=== PATIENT | male | born 1945 | race Caucasian/White ===

== ENCOUNTER 2020-02-28 00:19 | Outpatient (CLI) | payer OTHER, SELFPAY ==
[2020-02-28 17:08] LABS: SARS-CoV-2 RNA PCR Negative
== END 2020-02-28 00:20 | disposition home or self-care (01) ==
PROVIDERS: PCP Physician Assistant; Visit Provider Internal Medicine Gastroenterology
DX: Z01.812 Encounter for preprocedural laboratory examination (principal); Z20.828 Contact with and (suspected) exposure to other viral communicable diseases
CPT/HCPCS: 87635; C9803; U0003

== ENCOUNTER 2020-03-02 00:38 | Day surgery (SDC) | payer OTHER, SELFPAY ==
[2020-02-20 15:42] VITALS: BMI 28.0
[2020-03-02 07:48] VITALS: BP 138/80; PULSE 89; RESP 16; TEMP 36.1; O2SAT 98
--- NOTE | 2020-03-02 07:59 | P.HP_ITS ---
History of Present Illness History of Present Illness Consent: Risks, benefits, and alternatives have been discussed and questions answered. Patient agrees to proceed with procedure. Chief complaint: Hx Colon Polyps Narrative: Luis Aguilera Jr. is a 74 year old white male referred for screening colonoscopy secondary history of colonic polyps. Patient had adenomatous and hyperplastic polyps removed 8 years ago. He has not had a colonoscopy since then. He has no symptoms and no family history of colon polyps or colon cancer. [facility] Past Medical History Medical History (Updated 03/02/20 @ 08:01 by Adam Adames MD) Dyslipidemia Hypertension Surgical History Surgical History (Updated 03/02/20 @ 08:00 by Adam Adames MD) History of lumbar spinal fusion Social History Social History Smoking packs per day: 1 Smoking cigarettes per day: 20.0 Years smoked: 20 Smoking pack-years: 20.00 Smoking status: Former smoker Tobacco type: cigarettes Alcohol intake: current Drinks per week: 6 Substance use: never Substance use type: does not use Living arrangements: with family Spiritual care concerns: No Meds Home Medications and Allergies Home Medications Medication Instructions Recorded Confirmed Type fluticasone propionate 2 spray INTRANASAL DAILY 02/20/20 03/02/20 History levothyroxine 75 mcg PO DAILY 02/20/20 03/02/20 History losartan 50 mg PO DAILY 02/20/20 03/02/20 History rosuvastatin 10 mg PO DAILY 02/20/20 03/02/20 History Allergies Allergy/AdvReac Type Severity Reaction Status Date / Time No Known Drug Allergies Allergy Unknown Unknown Verified 03/02/20 07:40 Vital Signs Vital Signs - 24 hr 03/02/20 07:48 Temperature 36.1 C L Pulse Rate 89 Respiratory Rate 16 Blood Pressure 138/80 Pulse Oximetry 98 Exam Const: Orientation/consciousness: patient oriented x3 Resp: Auscultation: clear to auscultation bilaterally Cardio: Rate: regular rate Rhythm: regular rhythm Heart sounds: no murmurs GI: GI Palp: Yes Soft to palpation, No Tenderness to palpation present (GI), Yes No hepatosplenomegaly present and No Palpable mass present Auscultation: normal bowel sounds Neuro: General: patient oriented x3 and no focal motor deficits Extrem: General: no pedal edema Assessment and Plan Additional Plan screening colonoscopy secondary history of colon polyps
[2020-03-02] MEDS: LACTATED RINGERS 1,000 ML 150 ML IV CONT (08:02)
--- NOTE | 2020-03-02 08:24 | WPDANESEPPF ---
Anes - Initial Pre Proc Eval Procedure: Operation Date: 03/02/20 09:00 Proposed Procedures p Screening Colonoscopy - Adam Adames MD Date/Time: 03/02/20 08:24 Surgeon: Adam Adames MD Pre Op Diagnosis: Hx Colon Polyps Patient Data Age: 74 Gender: M Height: 5 ft 9 in Weight: 87.5 kg Last Vital Signs Temp 97.0 F L 03/02/20 07:48 Pulse 89 03/02/20 07:48 Resp 16 03/02/20 07:48 BP 138/80 03/02/20 07:48 Pulse Ox 98 03/02/20 07:48 Allergies Allergy/AdvReac Type Severity Reaction Status Date / Time No Known Drug Allergies Allergy Unknown Unknown Verified 03/02/20 07:40 Home Medications Medication Instructions Recorded Confirmed Type fluticasone propionate 2 spray INTRANASAL DAILY 02/20/20 03/02/20 History levothyroxine 75 mcg PO DAILY 02/20/20 03/02/20 History losartan 50 mg PO DAILY 02/20/20 03/02/20 History rosuvastatin 10 mg PO DAILY 02/20/20 03/02/20 History Patient hx anesthesia problems: none Family hx anesthesia problems: none [facility] Past Medical History Medical History (Updated 03/02/20 @ 08:24 by Reilly Rico MD) Dyslipidemia H/O prostate cancer Hypertension Hypothyroid Surgical History Surgical History (Updated 03/02/20 @ 08:00 by Adam Adames MD) History of lumbar spinal fusion Social History Social History Smoking packs per day: 1 Smoking cigarettes per day: 20.0 Years smoked: 20 Smoking pack-years: 20.00 Smoking status: Former smoker Tobacco type: cigarettes Alcohol intake: current Drinks per week: 6 Substance use: never Substance use type: does not use Living arrangements: with family Spiritual care concerns: No Anes - Eval Final PreProcedure Day of Procedure 03/02/20 08:24 Patient weight: overweight Heart: regular rate and rhythm Lungs: clear to auscultation Airway: Mallampati scale class II Neurological: alert and oriented Last oral intake: >/= 8 hours ASA classification: III Emergent: no Anesthetic plan: proceed Anesthesia type and monitoring: general GIVS and standard monitoring Informed Consent: The patient's anesthetic plan and its attendant risks and benefits were discussed with the patient/family/POA. Questions were solicited and answers provided to the satisfaction of the patient/family/POA.
--- NOTE | 2020-03-02 09:13 | ECG_ITS ---
Measurements Intervals [place] Rate: 77 P: 58 NM: 146 QRS: 5 QRSD: 97 T: 40 QT: 397 QTc: 451 Interpretive Statements SINUS RHYTHM VENTRICULAR BIGEMINY POSSIBLE LEFT ATRIAL ENLARGEMENT INFERIOR INFARCT, AGE INDETERMINATE ABNORMAL ECG Electronically Signed On 03-02-2020 10:45:12 CDT by Freeman Hidalgo D.O.
--- NOTE | 2020-03-02 09:13 | SUR.OPER ---
0901: PT INTO ENDOSCOPY ROOM 1, CASE DELAYED PER ANESTHESIA, PT'S SPOUSE ELSIE LATRICIA
--- NOTE | 2020-03-02 10:04 | SUR.OPER ---
0957: PT BACK INTO ENDOSCOPY 1, CLEARED FOR PROCEDURE, AT BEDSIDE WITH NO CONCERNS
[2020-03-02] MEDS: SIMETHICONE ORAL SUSPENSION 20 MG/0.3 ML 30 ML BOTTLE 0.6 ML IRRIGATION (10:08)
[2020-03-02 10:21] VITALS: BP 103/48; PULSE 77; RESP 17; O2SAT 95
[2020-03-02 10:31] VITALS: BP 105/49; PULSE 82; RESP 21; O2SAT 98
--- NOTE | 2020-03-02 10:33 | SUR.PHASEII ---
1033 -MT JOHNSON IN WITH PATIENT DOING EKG
--- NOTE | 2020-03-02 10:35 | PM.CNCAR ---
Assessment and Plan Assessment and plan (1) Ventricular bigeminy seen on laboratory monitor: Code(s): R00.8 - Other abnormalities of heart beat Status: Acute Assessment and Plan: likely benign finding. Will check a TSH, T4 level, basic metabolic panel and magnesium level for electrolyte stability. EKG today. 2D echocardiogram with Doppler will be ordered and performed as an outpatient. Will follow up in the office. Patient may proceed to have his elective colonoscopy (2) Hypertension: Code(s): I10 - Essential (primary) hypertension Status: Acute Assessment and Plan: on losartan (3) Dyslipidemia: Code(s): E78.5 - Hyperlipidemia, unspecified Status: Acute Assessment and Plan: on statin (4) Hypothyroid: Code(s): E03.9 - Hypothyroidism, unspecified Status: Acute Assessment and Plan: on replacement History of Present Illness History of Present Illness Consult date/time: 03/02/20 10:35 Requesting physician: Reilly Rico MD Consult reason: Other ( ventricular bigeminy) Reason For Visit: Hx Colon Polyps Narrative: date of service 03/02/2020 Reason for consultation: Ventricular bigeminy history: Patient is a 74-year-old male who is here today to have a colonoscopy performed. Is for routine screening. While on monitor, it was noted that he was in ventricular bigeminy. Consultation was therefore requested. Patient is completely asymptomatic and has no chest pain, shortness breath, syncope, presyncope, paroxysmal nocturnal dyspnea, orthopnea, edema palpitations. 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 He has had a longstanding history of bradycardia. Has never been told he has had ventricular bigeminy. He does get a little dizzy if he stands up too fast from a sitting or lying position Review of Systems Review of Systems: All systems reviewed & are unremarkable except as noted in HPI and below Constitutional: Constitutional: Denies weakness Eyes: Eyes: Denies blurry vision ENT: Denies Normal hearing present Cardiovascular: Cardiovascular: Denies chest pain Respiratory: Respiratory: Denies dyspnea Gastrointestinal: Gastrointestinal: Denies abdominal pain Genitourinary: Genitourinary: Denies dysuria Musculoskeletal: Musculoskeletal: Denies neck pain Integumentary/Breasts: Skin/Breast: Denies dry skin Neurologic: Denies headache(s) Psychiatric: Psychiatric: Denies anxiety Endocrine: Endocrine: Denies excessive sweating Hematologic/Lymphatic: Hematologic/Lymphatic: Denies easy bleeding Allergic/Immunologic: Allergic/Immunologic: Denies GI upset with certain foods PMFSH Past Medical History Medical History Dyslipidemia H/O prostate cancer Hypertension Hypothyroid Surgical History Surgical History History of lumbar spinal fusion Family History Family History (Updated 03/02/20 @ 10:38 by Ravinder Hernandez MD) Father CHF (congestive heart failure) Social History Social History Smoking packs per day: 1 Smoking cigarettes per day: 20.0 Years smoked: 20 Smoking pack-years: 20.00 Smoking status: Former smoker Tobacco type: cigarettes Alcohol intake: current Drinks per week: 6 Substance use: never Substance use type: does not use Living arrangements: with family Spiritual care concerns: No Meds Home Medications and Allergies Home Medications Medication Instructions Recorded Confirmed Type fluticasone propionate 2 spray INTRANASAL DAILY 02/20/20 03/02/20 History levothyroxine 75 mcg PO DAILY 02/20/20 03/02/20 History losartan 50 mg PO DAILY 02/20/20 03/02/20 History rosuvastatin 10 mg PO DAILY 02/20/20 03/02/20 History Allergies Allergy/AdvReac Type Severity Reaction Status Date
[2020-03-02 10:41] VITALS: BP 131/61; PULSE 74; RESP 18; O2SAT 99
== END 2020-03-02 11:24 | disposition home or self-care (01) ==
PROVIDERS: PCP Physician Assistant; Visit Provider Internal Medicine Gastroenterology
PROC: 0DJD8ZZ Inspection of Lower Intestinal Tract, Via Natural or Artificial Opening Endoscopic (ICD-10-PCS; CPT 45378; principal; 2020-03-02 09:00)
DX: Z12.11 Encounter for screening for malignant neoplasm of colon (principal); D12.8 Benign neoplasm of rectum; K57.30 Diverticulosis of large intestine without perforation or abscess without bleeding; K64.8 Other hemorrhoids; R00.8 Other abnormalities of heart beat; E78.5 Hyperlipidemia, unspecified; I10 Essential (primary) hypertension; E03.9 Hypothyroidism, unspecified; Z85.46 Personal history of malignant neoplasm of prostate; Z87.891 Personal history of nicotine dependence
CPT/HCPCS: 45385; 88305; 93005; J2704; J7120

== ENCOUNTER → 2020-09-03 14:00 | Outpatient (CLI) | payer OTHER, SELFPAY ==
--- NOTE | ~2020-09-03 | XR_ITS ---
XR foot LT min 3V DATE: 09/03/2020 14:40 INDICATION: Left foot pain TECHNIQUE: 4 views COMPARISON: None FINDINGS: There is anterior and posterior tibial artery calcification. Plantar calcaneal enthesopathy. No fracture or dislocation, periosteal reaction or bone destruction. No erosive change. There is mild narrowing at the first metatarsophalangeal joint. IMPRESSION: Plantar calcaneal enthesopathy Mild osteoarthritis at the first metatarsophalangeal joint Reviewed, dictated and finalized at location B.
== END ==
PROVIDERS: PCP Physician Assistant; Visit Provider Physician Assistant
DX: M77.32 Calcaneal spur, left foot (principal)
CPT/HCPCS: 73630

== ENCOUNTER → 2021-07-21 12:51 | Outpatient (CLI) | payer OTHER, SELFPAY ==
--- NOTE | ~2021-07-21 | XR_ITS ---
EXAMINATION: XR hip RT min 2V DATE: 07/21/2021 13:09 INDICATION: Right hip pain. TECHNIQUE: 2 views of right hip were obtained. COMPARISON: None. FINDINGS: Bone alignment is normal. No fracture. There is moderate right hip osteoarthritis. Surgical clips overlie the pelvis. IMPRESSION: 1. Moderate right hip osteoarthritis. Reviewed, dictated and finalized at location E. E SPECIALIST
== END ==
PROVIDERS: Visit Provider Physician Assistant
DX: M25.551 Pain in right hip (principal); M17.11 Unilateral primary osteoarthritis, right knee
CPT/HCPCS: 73502

== ENCOUNTER 2024-05-23 14:17 | Emergency (ER) | payer OTHER, SELFPAY ==
[2024-05-23 14:19] VITALS: BP 139/94; PULSE 60; RESP 16; TEMP 36.2; O2SAT 100
--- NOTE | 2024-05-23 15:44 | ED_ITS ---
HPI - Wound/Laceration General Chief Complaint: Wound/Laceration Stated Complaint: tongue lac Time Seen by Provider: 05/23/24 15:30 Source: patient Mode of arrival: ambulatory Limitations: no limitations History of Present Illness HPI narrative: This is a 78-year-old male who presents to the ED for chief complaint of dental/oral laceration during dental procedure today. He takes Eliquis regularly and had trouble stopping the bleeding after the procedure. They were prepping the right upper molar for crown when this happened today. Reports laceration to the gum and tongue. Denies any further injury. Denies lightheadedness, syncope, nausea, vomiting. Related Data Home Medications ?Medication ?Instructions ?Recorded ?Confirmed ?Last Taken ?Type rosuvastatin 10 mg tablet 10 mg PO DAILY 02/20/20 11/20/23 03/01/20 09:00 History apixaban 5 mg tablet (Eliquis) 5 mg PO BID 03/31/23 11/20/23 Unknown History lorazepam 0.5 mg tablet 0.5 mg PO QHS PRN 03/31/23 11/20/23 Unknown History metoprolol succinate 50 mg 50 mg PO DAILY 03/31/23 11/20/23 Unknown History tablet,extended release 24 hr Allergies Allergy/AdvReac Type Severity Reaction Status Date / Time No Known Drug Allergies Allergy Unknown Unknown Verified 11/20/23 11:56 Review of Systems Review of Systems: All systems as dictated in HPI [facility] Past Medical History Medical History (Updated 05/23/24 @ 16:42 by Clyde Azul PA-C) H/O prostate cancer Hypothyroid Hypertension Dyslipidemia Surgical History Surgical History History of lumbar spinal fusion Family History Family History Father CHF (congestive heart failure) Social History Social History Smoking packs per day: 1 Smoking cigarettes per day: 20.0 Years smoked: 20 Smoking pack-years: 20.00 Smoking status: Former smoker Tobacco type: cigarettes Alcohol intake: current Drinks per week: 6 Substance use: never Substance use type: does not use Living arrangements: with family Spiritual care concerns: No Exam Narrative: GENERAL: Well-appearing, well-nourished, and in no acute distress. HEAD: Normocephalic, atraumatic. EYES: PERRLA and EOMI. ENT: Small 1 cm laceration to the right lateral tongue and 1 cm laceration to the right upper gum. Minimal oozing at this point. Almost no bleeding on my exam. Nares clear, no rhinorrhea or epistaxis. Mucous membranes moist. Oropharynx without tonsillar hypertrophy exudate or other lesions. NECK: Supple. No adenopathy or masses. CHEST: No respiratory distress. Clear to auscultation. No wheezes rales or rhonchi HEART: Regular rate and rhythm. No murmur heard. Normal peripheral pulses. ABDOMEN: Soft, nontender, nondistended, normal active bowel sounds. MSK: Normal range of motion. No edema. SKIN: Warm, dry, no rash. NEURO: Alert and oriented x4. No focal deficits. PSYCH: Normal mood and affect. Course Reevaluation(s) Reevaluation #1: Did apply topical TXA for several minutes. Bleeding has stopped at this point. Patient feels good and ready to go home Date: 05/23/24 Time: 16:41 Vital Signs Vital signs: Vital Signs Temperature 97.1 F L 05/23/24 14:19 Pulse Rate 60 05/23/24 14:19 Respiratory Rate 16 05/23/24 14:19 Blood Pressure 139/94 H 05/23/24 14:19 Pulse Oximetry 100 05/23/24 14:19 Temperature 97.9 F 05/23/24 16:46 Pulse Rate 82 05/23/24 16:46 Respiratory Rate 16 05/23/24 16:46 Blood Pressure 132/80 05/23/24 16:46 Pulse Oximetry 100 05/23/24 16:46 MDM - Wound/Laceration MDM Narrative Medical decision making narrative: This is a 78-year-old male who presents to the ED for chief complaint of oral lacerations during at dental procedures today. He is on Eliquis and had quite a bit of trouble getting the bleeding stopped. Vitals are normal. Exam does show mildly oozing bleeding from a right gum and right tongue laceration. It would appear that the bleeding is greatly improved since initial injury. I did have the patient use some TXA soaked gauze over the area and he continues to be asymptomatic on re-evaluation Patient will be discharged in stable condition. Supportive measures discussed and return precautions given. Patient is understanding and agreeable with plan for discharge with PCP follow-up. Discharge Plan Discharge Clinical Impression: Laceration Patient Disposition: Home, Self-Care Condition: Stable Instructions: Antibiotic Form, Laceration (ED) Additional Instructions: Your exam today showed 1 cm lacerations to the right upper gum, right lateral tongue. Questionable small ml to the right cheek. Please stick to softer foods tonight and avoid anything hard or crunchy. If you have any new or worsening symptoms please return to the ER for further evaluation. Patient Language: Barbadian Prescriptions: No Action lorazepam 0.5 mg tablet 0.5 mg PO QHS PRN metoprolol succinate 50 mg tablet extended release 24 hr 50 mg PO DAILY Eliquis 5 mg tablet 5 mg PO BID rosuvastatin 10 mg tablet 10 mg PO DAILY sildenafil 100 mg tablet 100 mg PO DAILY PRN (Reason: sexual activity) Qty: 10 3RF Rx Instructions: administer 30 minutes to 4 hours before activity meclizine 25 mg tablet 25 mg PO BID PRN (Reason: dizziness) Qty: 30 0RF baclofen 10 mg tablet 10 mg PO DAILY PRN (Reason: muscle spasm) Qty: 20 0RF levothyroxine 75 mcg tablet 75 mcg PO DAILY Qty: 90 1RF losartan 50 mg tablet 50 mg PO DAILY Qty: 90 1RF duloxetine 30 mg capsule,delayed release(DR/EC) 30 mg PO DAILY Qty: 30 4RF Follow-up/Referrals: Renata Monson MD [Primary Care Provider] - Time of Disposition: 16:42
[2024-05-23 16:46] VITALS: BP 132/80; PULSE 82; RESP 16; TEMP 36.6; O2SAT 100
== END 2024-05-23 16:48 | disposition home or self-care (01) ==
PROVIDERS: Emergency Provider Physician Assistant; PCP Family Medicine
DX: S01.512A Laceration without foreign body of oral cavity, initial encounter (principal); I10 Essential (primary) hypertension; E03.9 Hypothyroidism, unspecified; E78.5 Hyperlipidemia, unspecified; Z87.891 Personal history of nicotine dependence; Z85.46 Personal history of malignant neoplasm of prostate; Z79.01 Long term (current) use of anticoagulants; Z79.899 Other long term (current) drug therapy; Z98.1 Arthrodesis status; W26.9XXA Contact with unspecified sharp object(s), initial encounter
CPT/HCPCS: 96374; 99284

== ENCOUNTER 2024-06-03 10:29 | Outpatient (CLI) | payer OTHER, SELFPAY ==
--- NOTE | ~2024-06-03 | XR_ITS ---
XR knee RT 3V Ordering provider: Sabra Soto PA-C History: . M25.561 - Pain in right knee . Comparison: None. FINDINGS: BONES: No acute fracture or dislocation. JOINT SPACES: Normal. SOFT TISSUES: Vascular atherosclerotic changes. IMPRESSION: No acute osseous abnormality right knee. Reviewed, dictated and finalized at location A. NESS ANALYTICS MANAGER
== END 2024-06-03 10:30 | disposition home or self-care (01) ==
PROVIDERS: PCP Family Medicine; Visit Provider Student in an Organized Health Care Education/Training Program
DX: M25.561 Pain in right knee (principal)
CPT/HCPCS: 73562

== ENCOUNTER 2024-06-10 14:15 | Outpatient (RCR) | payer OTHER, SELFPAY ==
--- NOTE | 2024-06-10 15:17 | OPREHPOC ---
Outpatient Therapy Plan of Care This is a Multidisciplinary Plan of Care that may contain components documented by all disciplines (PT, OT, and ST.) PT Problem 1 PT Problem #1 Knowledge Deficit PT Goal 1 Goal / Goal Update *indep with HEP Target Visit 4 PT Problem 2 PT Problem #2 Pain PT Goal 1 Goal / Goal Update * decrease pain to 5/10 at worst Target Visit 4 PT Problem 3 PT Problem #3 Impaired Flexibility PT Goal 1 Goal / Goal Update * increase flexion of R knee to 120' to improve mobility and transfer skills Target Visit 4 PT Problem 4 PT Problem #4 Impaired Functional Mobility PT Goal 1 Goal / Goal Update *pt able to ambulate with one crutch 300' with good gait pattern Target Visit 4
--- NOTE | 2024-06-10 15:17 | PTOPEVAL1 ---
Assessment and note entered by Chacha Andres, PT Evaluation Information Assessment Status Evaluation ICD-10 Condition Codes (PT) Pain in right knee M25.561,Abnormalities of gait and mobility R26.9,Weakness R53.1 Onset 05-31-24 Subjective Information propping R LE on foot stool, felt like he hyperextended it; then few days later, going up the stairs, knee popped and hurt, made him fall; then started using the crutches due to knee pain; pain is less than it was initially; saw , had xray, negative; went to chiropractor for knee adjustment earlier today; want to get his knee better because he is leaving for [place] on Jun 20, for 2 months. activity: active lifestyle, golf, walks ~ 1 mile for fitness; not been as active as have been in the past; Reported Pain Level Pain Score Self Report Additional Pain Score Comments pain range in the past few days 7-10/10; tooth ache, throb with each heart beat; not really have any swelling in it. increase pain: sit, rest, use crutches decrease pain: heat, ice, ibuprofen report with sleeping pain awakens him 3x/night also have R ankle pain; Assessment PT Clinical Summary Luis has the diagnosis of R knee pain, onset with hyperextension position of knee, then few days later had pop on stairs and fell. Also reports R ankle pain. He started using the crutches due to pain. The pain has decreased since onset, but sleeping is disrupted due to pain. LE functional scale rating of 93% limitation in activity level. Prior to this, he was active and plans to leave Jun 20 for [place]. History includes lumbar fusion and prostate cancer. With the evaluation: Pain in R knee with both flexion and extension motions, and R ankle pain with DF, inversion and eversion motions; R knee flexion range is active 110'; he is walking with crutches and cannot tolerate full weight bearing on R LE. Skilled PT services are indicated for modalities to decrease pain, therapeutic exercises to increase strength and ROM of R knee and ankle, with education for HEP. With discussion of the plan of care and treatment plan, pt reported he would not be making any more appointments, wanted more treatment on his knee today. Will keep his chart open, in case he wants additional treatment. Plan of Care Interventions Electrical Stimulation,Hot Pack/Cold Pack,Manual Therapy,Neuro Re-education,Patient/Caregiver Education,Therapeutic Activities,Therapeutic Exercise,Ultrasound,Other Other Interventions taping PT Services Indicated Yes Treatment Frequency and 2x/wk for 4 visits Duration These treatments will address the objective and functional deficits as defined above. The patient will be advanced safely and appropriately in order for the patient to progress towards his/her prior level of function. Additional exercises will be introduced and as well as a comprehensive home exercise program upon discharge, if needed, ?to ensure carryover of functional gains achieved in the clinic. This treatment plan has been reviewed and agreement upon by the patient.
--- NOTE | 2024-07-30 15:33 | PTOPDC ---
Assessment and note entered by Chacha Andres, PT Assessment Status Discharge - Pt Not Present ICD-10 Condition Codes (PT) Pain in right knee M25.561,Abnormalities of gait and mobility R26.9,Weakness R53.1 Onset 05-31-24 Subjective Information pt was not seen this date. Assessment PT Clinical Summary Luis had the PT evaluation on June 10 and has not returned for any further treatment. Discharge PT. The goals were not addressed. Plan of Care PT Services Indicated No
== END 2024-07-31 08:27 | disposition home or self-care (01) ==
LOC: ANHPT 14:15
PROVIDERS: PCP Family Medicine; Visit Provider Student in an Organized Health Care Education/Training Program
DX: M25.561 Pain in right knee (principal)
CPT/HCPCS: 97110; 97161; 97530

== ENCOUNTER 2024-08-21 09:50 | Outpatient (CLI) | payer OTHER, SELFPAY ==
--- NOTE | ~2024-08-21 | XR_ITS ---
Clinical Indication: Dyspnea PA and lateral views of the chest: Comparison: 06/07/2016 Findings: The lungs are clear, without evidence of focal consolidation or pleural effusion. Cardiome diastinal silhouette is within normal limits. Bones and soft tissues are unremarkable. Impression: Normal chest. Reviewed, dictated and finalized at location . Impression: Normal chest.
== END 2024-08-21 09:51 | disposition home or self-care (01) ==
LOC: MICIMG 09:52
PROVIDERS: PCP Family Medicine; Visit Provider Student in an Organized Health Care Education/Training Program
DX: R06.00 Dyspnea, unspecified (principal)
CPT/HCPCS: 71046

== ENCOUNTER 2024-12-20 10:47 | Outpatient (CLI) | payer OTHER, SELFPAY ==
--- NOTE | 2024-12-20 10:55 | ECG_ITS ---
Test Date: 2024-12-20 11:02:24 Measurements Intervals [place] Rate: 55 P: 0 NH: 0 QRS: -4 QRSD: 99 T: 2 QT: 420 QTc: 403 Interpretive Statements ATRIAL FIBRILLATION WITH SLOW VENTRICULAR RESPONSE INFERIOR INFARCT, PROBABLY OLD Electronically Signed On 12-20-2024 11:10:45 CDT by Leonel Rocha D.O
--- OUTSIDE RECORDS SUMMARY | 2024-12-20 10:58 | XMS_ITS | Clinical Summary ---
Author Organization [facility] Address [address] [place] [address] Care Team Providers Care Infectious Disease Physician Name Role Phone Unavailable Primary Care Provider Unavailabl e Social History Tobacco Use Types Packs/Day Years Used Date Smoking Tobacco: Never Assessed Sex and Gender Information Value Date Recorded Sex Assigned at Not on file Legal Sex Male 5:00 PM CDT Gender Identity Not on file Sexual Orientation Not on file Plan of Treatment Health Maintenance Due Date Last Done Comments Hepatitis C 1963 DTaP, Tdap and Td Vaccines ( 1 - Tdap) 1965 Pneumococcal Vaccine: 50+ Ye ars (1 of 1 - PCV) 1996 Zoster Vaccines (1 of 2) 1996 RSV Immunization or 60+ Years (1 - 1-dose 75+ series) 2021 COVID-19 Vaccine ( - 2023-2 5 season) 2024 Meningococcal B Vaccine Aged Out No l onger eligible based on patient's age to complete this topic Meningococcal Vaccine Aged Out No edyta elver eligible based on patient's age to complete this topic RSV Immunizations Under 20 Months Aged Out No longer eligible based on patient's age to complete this topic
--- OUTSIDE RECORDS SUMMARY | 2024-12-20 10:58 | XMS_ITS | Encounter Summary ---
Author Organization [facility] Care Team Providers Care Chief Customer Officer Name Role Phone Danyell Mahoney Primary Care Provider [phone] Sonu Hernandez MD Unavailable [phone] Renata Monson MD Primary Care Provider [phone] Encounter Details Date Type Department Care Team (Latest Contact Info) Description 11/24/2016 Orders Only [facility] ProviderSachi MD [address] [place] [address] [phone] Social History Tobacco Use Types Packs/Day Years Used Date Smoking Tobacco: Never Assessed Sex and Gender Information Value Date Recorded Sex Assigned at Not on file Legal Sex Male 7:10 PM CDT Gender Identity Not on file Sexual Orientation Not on file documented as of this encounter Plan of Treatment Not on file documented as of this encounter Procedures Procedure Name Priority Date/Time Associated Diagnosis Comments COLONOSCOPY - SCAN 11/24/2016 12 :00 AM CDT documented in this encounter Results * COLONOSCOPY - SCAN (11/24/2016 12:00 AM CDT) Narrative 11/24/2016 12:00 AM CDT Ordered by an unspecified provider. Historical Provider Final Res ult documented in this encounter Visit Diagnoses Not on filedocumented in this encounter Care Teams Chief Customer Officer Relationship Specialty Start Date End Date Danyell Mahoney PA [address] [place] [address] PCP - General Internal Medicine 11/09/18 03/26/23 Renata Monson MD [address] [place] [address] PCP - General Family Medicine 03/27/23 Sonu Hernandez MD [address] [place] [address] Consulting Physician Cardiology 02/17/22 documented as of this encounter
--- OUTSIDE RECORDS SUMMARY | 2024-12-20 10:58 | XMS_ITS | Clinical Summary ---
Author Organization [facility] Address [address] [place] [address] Care Team Providers Care Billboard Erector Name Role Phone Rito Alejandra MD Unavailable [phone] Renata Monson MD Primary Care Provider [phone] Source Comments [facility],non-owned Affiliates and Associated Physician Practices is amultiple site organization consisting of ambulatory clinics and hospital sitesin [place], [place], [place] and [place]. This disclosure is being madepursuant to the Care Everywhere program and may not contain all information available regarding this patient. Last updated 18.[facility] Allergies No known active allergies Medications * Be aware that medications may not be up to date on this document. Alwaysverify current medications with the patient. naproxen (NAPROSYN) 500 MG tablet Take 500 mg by mouth 2 times daily. Active ibuprofen (MOTRIN) 800 MG tablet Take 800 mg by mouth every 6 hours as needed. Active meloxicam (MOBIC) 7.5 MG tablet Take 1 Tab by mouth 2 times daily. 60 Tab 5 4 Active metoprolol succinate XL 24hr (Toprol XL) 50 MG tablet Take 1 (one) tablet by mouth once daily Active losartan (Cozaar) 50 MG tablet Take 1 (one) tablet by mouth once daily Active LORazepam (Ativan) 0.5 MG tablet Take 1 (one) tablet by mouth every 8 hours as needed 3 Active levoFLOXacin (Levaquin) 500 MG tablet TAKE 1 TABLET BY MOUTH ONCE DAILY START 1 DAY PRIOR TO PROCEDURE 4 Active DULoxetine (Cymbalta) 30 MG capsule TAKE 1 BY MOUTH ONCE DAILY Active Eliquis 5 MG tablet Take 1 (one) tablet by mouth 2 times daily Active Active Problems Problem Noted Date Diagnosed Date Chronic pain of both knees 07/08/2024 Primary osteoarthritis of right knee 07/08/2024 Essential hypertension 08/16/2013 Overview (03/12/2015): History of prostate cancer 08/16/2013 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 08/16/2013 Overview (09/05/2015): 2015 IMO Updt Social History Tobacco Use Types Packs/Day Years Used Date Smoking Tobacco: Unknown Alcohol Use Standard Drinks/Week Comments Not Asked 0 (1 standard drink = 0.6 oz pur e alcohol) Sex and Gender Information Value Date Recorded Sex Assigned at Not on file Legal Sex Male 5:22 AM TOOL PROGRAMMER Gender Identity Not on file Sexual Orientation Not on file Last Filed Vital Signs Vital Sign Reading Time Taken Comments Blood Pressure - - Pulse - - Temperature - - Respiratory Rate - - Oxygen Saturation - - Inhaled Oxygen Concentration - - Weight 83.9 kg (185 lb) 08/16/2013 10:53 AM TOOL PROGRAMMER Height 177.8 cm (5' 10) 08/16/2013 10:53 AM TOOL PROGRAMMER Body Mass Index 26.54 08/16/2013 10:53 AM TOOL PROGRAMMER Plan of Treatment Health Maintenance Due Date Last Done Comments MEDICARE AWV 12 MONTHS 1945 HEPATITIS C SCREENING 10/29/1964 DTAP/TDAP/TD VACCINES (1 - Tdap) 1965 PNEUMOCOCCAL VACCINE 50+ (1 of 1 - PCV) 1996 ZOSTER VACCINE (1 of 2) 1996 Respiratory Syncytial Virus (RSV) Vaccine Pt: or over 60 yrs (1 - 1-dose 75+ series) 2021 COVID-19 VACCINE (1 - 2023- season) 2024 DEPRESSION SCREENING 06/12/2024 INFLUENZA VACCINE (#1) 2025 0, 03/06/2019, 03/05/2018, Additional history exists HEPATITIS B VACCINE Aged Out No longe r eligible based on patient's age to complete this topic HIB VACCINE Aged Out No longer eligi ble based on patient's age to complete this topic HPV VACCINE Aged Out No longer eligi ble based on patient's age to complete this topic MENINGOCOCCAL (Group B) VACCINE SHARED DECISION-MAKING Aged Out No longer eligible based on patient's age to complete this topic MENINGOCOCCAL GROUPS A/C/Y/W VACCINE Aged Out No longer eligible based on patient's age to complete this topic Insurance [employer] ADV PPO Care Teams Billboard Erector Relationship Specialty Start Date End Date Renata Monson MD [address] [place] [address] PCP - General Family Medicine 07/08/24 [place] [address] [place] [id number] Orthopedic Surgery 08/16/13
--- OUTSIDE RECORDS SUMMARY | 2024-12-20 10:58 | XMS_ITS | Encounter Summary ---
Author Organization [facility] Address [address] [place] [address] Care Team Providers Care Payroll Benefits Clerk Name Role Phone Rito Alejandra MD Unavailable Renata Monson MD Primary Care Provider [phone] Encounter Details Date Type Department Care Team (Late st Contact Info) Description 04/14/2020 Lab Requisition [facility] [address] [place] [address] Matt Crawford MD [address] [place] [address] Social History Tobacco Use Types Packs/Day Years Used Date Smoking Tobacco: Unknown Alcohol Use Standard Drinks/Week Comments Not Asked 0 (1 standard drink = 0.6 oz pur e alcohol) Sex and Gender Information Value Date Recorded Sex Assigned at Not on file Legal Sex Male 5:22 AM AIRCRAFT LAYOUT WORKER Gender Identity Not on file Sexual Orientation Not on file documented as of this encounter Plan of Treatment Not on file documented as of this encounter Procedures Procedure Name Priority Date/Time Associated Diagnosis Comments DERMATOPATHOLOGY Routine 04/13/2020 12:0 0 AM AIRCRAFT LAYOUT WORKER documented in this encounter Results * DERMATOPATHOLOGY (04/13/2020 12:00 AM AIRCRAFT LAYOUT WORKER) Case Report Dermatopathology Report Case: [id number] Authorizing Provider: Matt Crawford MD Collected: 04/13/2020 12:00 AM Ordering Location: [facility] Received: 04/14/2020 06:12 AM Pathologist: Kiah Antunez MD Specimens: A) - Skin, right cheek B) - Skin, left buttock 0 11:24 AM [facility] DERMAT[facility]OLOGY [facility]ORAT[facility] Final Diagnosis Specimen A. SKIN, right cheek: INTRADERMAL MELANOCYTIC NEVUS (D22.39) EPIDERMOID CYST (L72.0) Specimen B. 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 Path # [id number]. B: Skin tag. Path # [id number]. 0 11:24 AM [facility] DERMATOPATHOLOGY [facility]ORAT[facility] Gross Description Specimen A: Received is one formalin filled container labeled with the patient's name and designated right cheek. The specimen consists of a shave biopsy measuring [id number]. Jar 0. Specimen B: Received is one formalin filled container labeled with the patient's name and designated left buttock. The specimen consists of a shave biopsy (2 pieces) measuring [id number] & [id number]. Jar 0. 0 11:24 AM [facility]ERMATOPATHOLOGY [facility]OR[facility] Microscopic Description Specimen A. SKIN, right cheek: There are nests of cytologically bland melanocytes within the dermis that mature with depth. Within the dermis, there is a space lined by epithelium that resembles normal epidermis and the infundibular portion of the hair follicle. Specimen B. SKIN, left buttock: There is a gently folded epidermis surrounding a connective tissue core in which fat and collagen are intermingled. 0 11:24 AM [facility]ERMATOPATHOLOGY [facility]ORATORY Disclaimer An external and internal positive and negative controls are appropriate for the histochemical, immunohistochemical and immunofluorescence stain(s) in this case (if any), except where stated explicitly. The performance characteristics of the stain(s) cited in this report were developed and its performance characteristic determined by the Dermatopathology Laboratory at [facility], directed by Dr. Sharon Rosales. These tests need not be, and therefore are not, approved by the [place] Food and Drug Administration. The tests are used for clinical purposes. Billing Codes Specimen Charges Stain Charges 21526 50474 1 1 0 11:24 AM AIRCRAFT LAYOUT WORKER DERMATOPATHOLOGY LABORATORY Embedded Images 0 11:24 AM AIRCRAFT LAYOUT WORKER DERMATOPATHOLOGY LABORATORY Pathology/Cytology TISSUE SPECIMEN FROM SKIN / Unknown 04/13/2020 04/14/2020 6:12 AM AIRCRAFT LAYOUT WORKER Miscellaneous samples (specimen) TISSUE SPECIMEN FROM SKIN / Unknown 04/13/2020 04/14/2020 6:12 AM AIRCRAFT LAYOUT WORKER us Matt Crawford MD LAB - PATHOLOGY/CYTOLOGY ORDER BOONE Final Result DERMATOPATHOLOGY LABORATORY [facility] - Department of Dermatology [facility] Medicine [address] [place] [address], [address] [phone] documented in this encounter Visit Diagnoses Not on filedocumented in this encounter Care Teams Payroll Benefits Clerk Relationship Specialty Start Date End Date Renata Monson MD [address] [place] [address] PCP - General Family Medicine 07/08/24 [place] [address] [place] [id number] Orthopedic Surgery 08/16/13 documented as of this encounter
--- OUTSIDE RECORDS SUMMARY | 2024-12-20 10:58 | XMS_ITS | Clinical Summary ---
Author Organization [facility] [facility] Address [address] [place] [address] Care Team Providers Care Disability Case Manager Name Role Phone Sonu Hernandez MD Unavailable [phone] Renata Monson MD Primary Care Provider [phone] Allergies No known active allergies Medications omega-3 fatty acids-fish oil 360-1,200 mg capsule 1,200 mg daily Activ e multivit-min/FA/ly copen/lutein (CENTRUM SILVER MEN ORAL) Rx: Centrum Silver - Tablet Active gluc lewis/chondro lewis A/vit C/Mn (GLUCOSAMINE-CHOND ROIT-VIT C-MN) [id number] mg tablet Take by mouth daily Active chondroitin sulfate A sodium 400 mg capsule Take 200 mg by mouth Active coenzyme Q10 200 mg capsule Take 1 capsule (200 mg total) by mouth daily Active cetirizine (ZyrTEC) 10 mg tablet as needed Active fluticasone propionate (FLONASE) 50 mcg/actuation nasal sprayIndications:S easonal allergies Administer 2 sprays into each nostril daily 48 mL 2 3 Active rosuvastatin (CRESTOR) 10 mg tabletIndications: Mixed hyperlipidemia TAKE 1 TABLET BY MOUTH EVERY DAY 90 tablet 1 3 Active LORazepam (ATIVAN) 0.5 mg tabletIndications: Anxiety Take 1 tablet (0.5 mg total) by mouth every 8 (eight) hours as needed for anxiety 20 tablet 3 Active meclizine (ANTIVERT) 25 mg tabletIndications: Dizziness TAKE 1 TABLET (25 MG TOTAL) BY MOUTH EVERY 8 (EIGHT) HOURS NEEDED FOR DIZZINESS. 30 tablet 3 Active levothyroxine (SYNTHROID) 75 mcg tabletIndications: Acquired hypothyroidism TAKE 1 TABLET BY MOUTH SPECIAL ASSETS OFFICER BEFORE BREAKFAST 90 tablet [address] (CYMBALTA) 30 mg capsuleIndications :Anxiety Take 1 capsule by mouth once daily 90 capsule 1 3 Active metoprolol XL (TOPROL-XL) 50 mg extended release tablet Take 1 tablet (50 mg total) by mouth daily 90 tablet 3 3 Active baclofen (LIORESAL) 10 mg tablet TAKE 1 TABLET BY MOUTH ONCE DAILY NEEDED FOR MUSCLE SPASM 4 Active cyclobenzaprine (FLEXERIL) 5 mg tablet Take 1 tablet (5 mg total) by mouth 3 (three) times a day as needed for muscle spasms 4 Active losartan (COZAAR) 50 mg tablet Take 1 tablet (50 mg total) by mouth daily 4 Active metroNIDAZOLE (METROGEL) 1 % gel Apply topically daily 4 Active sildenafiL (VIAGRA) 100 mg tablet Take 1 tablet (100 mg total) by mouth as needed 4 Active apixaban (Eliquis) 5 mg tablet Take 1 tablet (5 mg total) by mouth 2 (two) times a day 60 tablet 6 5 Active Active Problems Problem Noted Date Diagnosed Date Cataract 02/01/2023 Assessment & Plan (02/01/2023 9:21 AM CDT): Plans Cataract removal with Dr. Fernandez/Jacinto [place] 02/01/2023 Assessment & Plan (02/01/2023 9:24 AM CDT): Patient has done well with Cymbalta 30 states it helps him not b low up . Continue with 30 mg and lorazepam b.i.d.. If symptoms increase would recommend increasing the Cymbalta to 60 and continuing to try to decrease lorazepam as this is a benzodiazepine with addictive dependency characteristics. BMI 29.0-29.9,adult 01/30/2023 Assessment & Plan (01/30/2023 3:28 PM CDT): Weight/BMI is in healthy range. Continue healthy lifestyle to maintain. Medicare annual wellness visit, subsequent 08/14 Assessment & Plan (08/21/2022 11:27 PM CDT): Encouraged healthy lifestyle, good nutrition and exercise. Encouraged Calcium and Vitamin D and weight bearing exercise for bone health. Reviewed immunizations. Reviewed age appropirate screenings. Medicare Wellness Documentation is completed within the chart Dizziness 02/18/2022 Assessment & Plan (02/18/2022 7:31 AM CDT): Patient has been experiencing dizziness for years. He felt like his dizziness exacerbated when he started the Xarelto. Discussed with him at length that this could be truly related to his AFib that has just now been caught. It probably is not isolated as a side effect to the Xarelto. Reviewed stroke symptoms and the need to be on an anticoagulant to prevent stroke risk based upon his chads Vasc risk score and his new diagnosis of AFib. Strongly encouraged him to consider restarting a anticoagulant which he is willing to do I reached out to Dr. Hernandez's office and was able to talk to his nurse Rosamaria regarding our patient. She is in agreement with the plan of restarting anticoagulant. He she will work on following up with his monitor to determine if enough information is available to continue with treatment plans. Will connect next week to discuss further. I also discussed with patient that I am concerned that he could have had a TIA or a stroke. He has not had any imaging of his brain so recommend getting a stat CT without contrast to rule out any vascular changes. Patient is agreement with the plan and would prefer [facility] or [facility] Paroxysmal atrial fibrillation 02/18/2022 Overview (02/18/2022): Dx: 01/2022 Dr. Hernandez [facility]. Assessment & Plan (08/21/2022 11:27 PM CDT): Persistent AFib. Continue per Dr. Hernandez at [facility] and Dr. Hernandez at [facility] in [place] He is on Eliquis b.i.d. as well as metoprolol for rate control. Assessment & Plan (02/18/2022 7:31 AM CDT): Patient has been experiencing dizziness for years. He felt like his dizziness exacerbated when he started the Xarelto. Discussed with him at length that this could be truly related to his AFib that has just now been caught. It probably is not isolated as a side effect to the Xarelto. Reviewed stroke symptoms and the need to be on an anticoagulant to prevent stroke risk based upon his chads Vasc risk score and his new diagnosis of AFib. Strongly encouraged him to consider restarting a anticoagulant which he is willing to do I reached out to Dr. Hernandez's office and was able to talk to his nurse Rosamaria regarding our patient. She is in agreement with the plan of restarting anticoagulant. He she will work on following up with his monitor to determine if enough information is available to continue with treatment plans. Will connect next week to discuss further. I also discussed with patient that I am concerned that he could have had a TIA or a stroke. He has not had any imaging of his brain so recommend getting a stat CT without contrast to rule out any vascular changes. Patient is agreement with the plan and would prefer [facility] or [facility] Brachial neuritis 12/01/2021 Disorder of bursae of shoulder region 12/01/2021 Low back pain 12/01/2021 Osteoarthritis of both knees 12/01/2021 Abrasion of face 07/18/2021 Assessment & Plan (07/18/2021 1:34 PM TIMBER TRIMMER): Abrasion was cleaned with water and dressed with DEDE and a Band-Aid. These to look for signs or symptoms of infection. And follow-up if he has any further problems. Tinnitus 06/15/2021 Assessment & Plan (06/15/2021 10:01 PM TIMBER TRIMMER): Patient is noting tripping or cricket sounds in his ears. Is distracting and would like further evaluation. Will go ahead make the referral to the truant officer and ENT and await recommendations. Right hip flexor tightness 03/08/2021 Assessment & Plan (03/08/2021 10:13 AM CDT): Discussed with patient that this appears to be right foot hip flexor tightness. We could do an x-ray to rule out bony abnormality but he has not had any type of a fall or injury. If it persists that would be recommended. Discussed NSAIDs which she has been using. Continue with heat or ice, whichever feels best him. Encouraged to consider physical therapy to help work him through this muscular tightness. However he is planning on leaving for floor in the next few days and does not feel like he can get that in before he leaves. Offered physical therapy order for [place] but he is with [facility] and so I do not believe feel build up taking care down there for physical therapy. He can check with his insurance and if it is possible I would be glad to write the order. Provided warning signs of hernia symptoms/incarcerated hernia. If these occur he is to seek immediate care. Fatigue 02/21/2021 Assessment & Plan (02/01/2023 9:22 AM CDT): Probably multifactorial. Check labs and followup to re-evaluate Assessment & Plan (08/21/2022 11:26 PM CDT): Probably multifactorial. Check labs and followup to re-evaluate Assessment & Plan (02/21/2021 9:51 AM CDT): Probably multifactorial. Check labs and followup to re-evaluate Premature atrial contractions 01/14/2021 Annual physical exam 12/06/2020 Assessment & Plan (02/01/2023 9:21 AM CDT): Insert wellness exam Assessment & Plan (12/06/2020 5:10 PM CDT): Encouraged healthy lifestyle, good nutrition and exercise. Encouraged Calcium and Vitamin D and weight bearing exercise for bone health. Reviewed immunizations Reviewed age appropirate screenings. Arthralgia 12/06/2020 Assessment & Plan (12/06/2020 5:10 PM CDT): Continue NSAIDs sparingly Check CMP Frequent PVCs 11/27/2020 Sinus bradycardia 09/15/2020 Assessment & Plan (09/15/2020 9:16 AM CDT): Continue per Cardio -- Patient states he feels great and it always run this Anxiety 06/07/2020 Assessment & Plan (08/21/2022 11:26 PM CDT): Continue to anxiety. Started Cymbalta about 2 weeks ago and thinks it is helping. Will continue with the same dose. Still has lorazepam b.i.d.. Follow-up in 4-6 weeks to reassess Assessment & Plan (02/21/2021 9:50 AM CDT): Pt stopped the cymbalta as feel like is currently managing without medication. Uses lorazepam sparingly prn Assessment & Plan (12/06/2020 5:08 PM CDT): Tried Cymbalta for a few days and didn't like. Will monitor. Assessment & Plan (06/09/2020 12:33 PM TIMBER TRIMMER): Increased anxiety sxs. Patient admits having sxs for a very long time. Discussed medication options--- Reviewed risks, benefit, alternatives, side effects and proper use. Start Cymbalta for the indications of anxiety and pain. One daily. May increase to 60mg if tolerates well. Assessment & Plan (06/07/2020 5:41 PM TIMBER TRIMMER): Continue Cymbalta. If tolerates well, may incresae to 60mg. PVC's (premature ventricular contractions) 05/31 Assessment & Plan (06/07/2020 5:39 PM TIMBER TRIMMER): See HTN Assessment & Plan (05/31/2020 10:55 AM TIMBER TRIMMER): Patient follows with cardio Dr. Schneider. His Metoprolol was increased to 50mg daily and this is when his sxs started. Will back down to 25mg for the next week to see if dizziness improves and start cymbalta. Followup in 1 week and will try to increase back to 50mg. If persists, may need referral back to Dr. Hernandez. He is to call with increased sxs, CP, SOB, syncope or if after hours, go to the ER. LISA on CPAP 05/27/2020 Assessment & Plan (01/03/2024 10:40 AM CDT): Due to continued symptoms, the patient will continue CPAP at 4-20 cm water pressure. Denied need for supplies. DME [facility] Assessment & Plan (12/30/2022 11:13 AM CDT): The patient will continue with CPAP at 4-20 cm water pressure. Denied need for supplies. DME [facility] Assessment & Plan (08/21/2022 11:26 PM CDT): Continue CPAP per Dr. Garcia Assessment & Plan (12/01/2021 11:34 AM CDT): Patient continue to wear CPAP in auto titrating range of 4-20 cm water pressure while sleeping. His DME is [facility]. Assessment & Plan (02/21/2021 9:51 AM CDT): Continue to use CPAP Assessment & Plan (11/25/2020 11:27 AM CDT): Patient states that he would like to hold off on labs regarding his hypersomnia until after he speaks to the alarm operator on Monday. Assessment & Plan (11/18/2020 9:54 AM CDT): Tolerating well and can see improvement Assessment & Plan (06/07/2020 5:38 PM TIMBER TRIMMER): Continue CPAP Assessment & Plan (05/31/2020 10:51 AM TIMBER TRIMMER): Working on adjusting to machine/mask. Stressed importance of using nightly to avoid ferry terminal agent sequela Assessment & Plan (05/27/2020 12:02 PM TIMBER TRIMMER): The patient has been set up with an auto titrating CPAP unit with a range of 5- 20 cm water pressure. I will order a heated hose for him through [facility] [place]. He is using and benefiting from the CPAP unit. Plantar fasciitis of left foot 04/20/2020 Assessment & Plan (09/15/2020 9:12 AM CDT): Left foot pain is improving. No fracture noted. Encouraged continued activity and monitor. NSAID prn. Call if sxs worsen or don't resolve. Assessment & Plan (04/20/2020 8:55 PM TIMBER TRIMMER): Keep stretching. Ice NSAIDs. Will make referral for further evaluation. Non-ischemic cardiomyopathy 04/08/2020 Assessment & Plan (08/21/2022 11:26 PM CDT): Continue per Cardiology. Appears compensated Assessment & Plan (12/06/2020 5:05 PM CDT): Continue per Cardio Ventricular bigeminy 04/08/2020 Other viral warts 03/06/2019 Assessment & Plan (03/06/2019 9:55 AM CDT): Discussed treatment options for these warts. He has had cryo done in the past and had good resolution for many years. He would prefer to have that done again today. Reviewed procedure and all questions were answered. Patient desires to proceed. Right elbow revealed 5 warts in the right knee had 1 wart. These areas were both cleansed with alcohol swab. I liquid nitrogen was applied to a Q-tip and each wart was treated for a 32nd freeze thaw cycle x2. Patient tolerated well. Reviewed with patient that the areas may blister and then peel off. Look for signs and symptoms of infection. Reviewed that he may require a 2nd treatment because of the thickness of the warts. He is leaving for [place] at the end of the week so he will monitor while he was there and may return for further treatment if they persist through the winter. Generalized OA 03/06/2019 Assessment & Plan (02/21/2021 9:50 AM CDT): On lodine -- use sparingly and continue to monitor renal function Assessment & Plan (12/06/2020 5:09 PM CDT): Patient finding relief with the etodolac. Use sparingly. Monitor renal function. Assessment & Plan (05/31/2020 10:52 AM TIMBER TRIMMER): Has been using NSAIDs. Will add Cymbalta for pain and anxiety management Assessment & Plan (02/05/2020 6:49 PM CDT): Continue IBU prn Assessment & Plan (03/06/2019 9:53 AM CDT): Requests ibuprofen prescription has uses it for chronic joint pain especially when he is walking down in [place]. Review do not exceed 2400 mg in a 24 hour. Hyperglycemia 03/03/2019 Assessment & Plan (02/01/2023 9:22 AM CDT): Pre-diabetes/hyperglycemia is a precursor to Dm. Stressed importance of working on diet (decrease your simple sugars and one carbohydrate with each meal) and increase you exercise to achieve weight loss and this will help prevent you from progressing to diabetes. Assessment & Plan (08/21/2022 11:25 PM CDT): Pre-diabetes/hyperglycemia is a precursor to Dm. Stressed importance of working on diet (decrease your simple sugars and one carbohydrate with each meal) and increase you exercise to achieve weight loss and this will help prevent you from progressing to diabetes. Assessment & Plan (02/21/2021 9:49 AM CDT): Pre-diabetes/hyperglycemia is a precursor to Dm. Stressed importance of working on diet (decrease your simple sugars and one carbohydrate with each meal) and increase you exercise to achieve weight loss and this will help prevent you from progressing to diabetes. Assessment & Plan (12/06/2020 5:07 PM CDT): Pre-diabetes/hyperglycemia is a precursor to Dm. Stressed importance of working on diet (decrease your simple sugars and one carbohydrate with each meal) and increase you exercise to achieve weight loss and this will help prevent you from progressing to diabetes. Assessment & Plan (09/15/2020 9:17 AM CDT): Pre-diabetes/hyperglycemia is a precursor to Dm. Stressed importance of working on diet (decrease your simple sugars and one carbohydrate with each meal) and increase you exercise to achieve weight loss and this will help prevent you from progressing to diabetes. Assessment & Plan (02/05/2020 6:52 PM CDT): Pre-diabetes/hyperglycemia is a precursor to Dm. Stressed importance of working on diet (decrease your simple sugars and one carbohydrate with each meal) and increase you exercise to achieve weight loss and this will help prevent you from progressing to diabetes. Assessment & Plan (03/03/2019 10:07 PM CDT): A1c checked in office and in normal range. Continue to watch diet and exercise. Seasonal allergies 12/01/2018 Assessment & Plan (08/21/2022 11:25 PM CDT): Continue Zyrtec and Flonase Assessment & Plan (12/06/2020 5:07 PM CDT): Continue current regimen Assessment & Plan (02/05/2020 6:54 PM CDT): Continue current regimen Assessment & Plan (05/26/2019 6:36 PM TIMBER TRIMMER): Continue antihistamine, flonase and mucinex. Start Singulair. Assessment & Plan (12/01/2018 11:24 AM CDT): Continue current regimen Mixed hyperlipidemia 11/28/2018 Assessment & Plan (02/01/2023 9:22 AM CDT): Encouraged patient to follow low fat/low chol diet like the Mediterranean diet. Increase good fats in the diet. Increase exercise. Monitor labs as needed. Continue Crestor Assessment & Plan (08/21/2022 11:24 PM CDT): Encouraged patient to follow low fat/low chol diet like the Mediterrean diet. Increase good fats in the diet. Increase exercise. Monitor labs as needed. Continue Crestor Assessment & Plan (02/18/2022 7:25 AM CDT): Encouraged patient to follow low fat/low chol diet like the Mediterranean diet. Increase good fats in the diet. Increase exercise. Monitor labs as needed. Strongly encouraged to take the Crestor daily. Reviewed risks and benefits as well as alternatives to this product Assessment & Plan (12/06/2020 5:05 PM CDT): Encouraged patient to follow fat/low chol diet like the Mediterranean diet. Increase good fats in the diet. Increase exercise. Monitor labs as needed. Continue statin Assessment & Plan (09/15/2020 9:17 AM CDT): Encouraged patient to follow fat/low chol diet like the Mediterranean diet. Increase good fats in the diet. Increase exercise. Monitor labs as needed. Continue statin Assessment & Plan (02/05/2020 6:51 PM CDT): Encouraged patient to continue low fat/low chol diet. Continue exercise. Increase good fats in the diet. Monitor labs as needed. Still diet controlled Assessment & Plan (12/01/2018 11:22 AM CDT): Encouraged patient to continue low fat/low chol diet. Continue exercise. Increase good fats in the diet. Monitor labs as needed. Essential hypertension 11/28/2018 Assessment & Plan (02/01/2023 9:22 AM CDT): Bp is stable/in acceptable range for any co-morbidities. Encouraged to limit sodium intake and exercise for weight control. Continue per Dr. Hernandez cardiology Assessment & Plan (08/21/2022 11:25 PM CDT): Bp is stable/in acceptable range for any co-morbidities. Encouraged to limit sodium intake and exercise for weight control. Continue per Cardiology Assessment & Plan (02/18/2022 7:25 AM CDT): Bp is stable/in acceptable range for any co-morbidities. Encouraged to limit sodium intake and exercise for weight control. Continue the metoprolol Assessment & Plan (02/21/2021 9:47 AM CDT): Bp is stable/in acceptable range for any co-morbidities. Encouraged to limit sodium intake and exercise for weight control. Continue metroprolol per Dr. Hernandez EP Assessment & Plan (12/06/2020 5:05 PM CDT): Bp is stable/in acceptable range for any co-morbidities. Encouraged to limit sodium intake and exercise for weight control. Continue per cardio Assessment & Plan (06/07/2020 5:39 PM TIMBER TRIMMER): Stable. Continue the Metoprolol Xl 25. Pulled back due to increased dizziness. Continue to monitor. No breatkthru palpitations. Assessment & Plan (02/05/2020 6:49 PM CDT): Bp is stable/in acceptable range for any co-morbidities. Encouraged to limit sodium intake and exercise for weight control. continue Losartan Assessment & Plan (12/01/2018 11:22 AM CDT): Bp is stable/in acceptable range for any co-morbidities. Encouraged to limit sodium intake and exercise for weight control. Acquired hypothyroidism 11/28/2018 Assessment & Plan (02/01/2023 9:23 AM CDT): Continue levothyroxine. Monitor labs. Assessment & Plan (08/21/2022 11:25 PM CDT): Continue levothyroxine. Monitor labs. Assessment & Plan (02/18/2022 7:25 AM CDT): Continue levothyroxine. Monitor labs. Assessment & Plan (02/21/2021 9:48 AM CDT): Continue levothyroxine. Monitor labs. Assessment & Plan (12/06/2020 5:05 PM CDT): Continue levothyroxine. Monitor labs. Assessment & Plan (09/15/2020 9:17 AM CDT): Check labs Assessment & Plan (02/05/2020 6:52 PM CDT): Continue levothyroxine. Monitor labs Assessment & Plan (12/01/2018 11:23 AM CDT): Stable with the levothyroxine History of prostate cancer 11/28/2018 Assessment & Plan (09/15/2020 9:18 AM CDT): Check psa Assessment & Plan (02/05/2020 6:53 PM CDT): Pt would like to continue rechecking PSA Assessment & Plan (12/01/2018 11:23 AM CDT): Recheck PSA for stability Inflammatory spondylopathy of lumbar region 11/2016 Overview (12/01/2021): stable, hx of operative intervention, pain controlled. 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 Continue healthy lifestyle to maintain. Assessment & Plan (02/17/2022 2:29 PM CDT): Weight/BMI is in healthy range. Continue healthy lifestyle to maintain. BMI 29.0-29.9,adult 06/15/2021 02/18/20 22 Assessment & Plan (06/15/2021 11:24 AM TIMBER TRIMMER): Weight/BMI is in healthy range. Continue healthy lifestyle to maintain. Medicare annual wellness visit, subsequent 02/21/2021 08/14/2022 Assessment & Plan (02/21/2021 9:51 AM CDT): Encouraged healthy lifestyle, good nutrition and exercise. Encouraged Calcium and Vitamin D and weight bearing exercise for bone health. Reviewed immunizations. Reviewed age appropirate screenings. Medicare Wellness Documentation is completed within the chart Stage 3a chronic kidney disease 12/06/2020 08/14/2022 BMI 29.0-29.9,adult 11/18/2020 06/15/19 22 Assessment & Plan (03/08/2021 9:50 AM CDT): Weight/BMI is in healthy range. Continue healthy lifestyle to maintain. Assessment & Plan (02/10/2021 1:23 PM CDT): Weight/BMI is in healthy range. Continue healthy lifestyle to maintain. Assessment & Plan (11/18/2020 9:12 AM CDT): Weight/BMI is in healthy range. Continue healthy lifestyle to maintain. BMI 29.0-29.9,adult 05/27/2020 09/16/19 21 Assessment & Plan (06/07/2020 5:40 PM TIMBER TRIMMER): Weight/BMI is in healthy range. Continue healthy lifestyle to maintain. Assessment & Plan (05/27/2020 1:36 PM TIMBER TRIMMER): Weight/BMI is in healthy range. Continue healthy lifestyle to maintain. Colon cancer screening 02/05/202004/08 Assessment & Plan (02/05/2020 6:55 PM CDT): Refer back to Dr. Adames for repeat colonoscopy Need for 23-polyvalent pneum ococcal polysaccharide vaccine 02/05/2020 04/08/2020 Assessment & Plan (02/05/2020 6:55 PM CDT): Updated in office today Medicare annual wellness visit, subsequent 02/04/2020 04/08/2020 Assessment & Plan (02/05/2020 6:54 PM CDT): Encouraged healthy lifestyle, good nutrition and exercise. Encouraged Calcium and Vitamin D and weight bearing exercise for bone health. Reviewed immunizations. Reviewed age appropirate screenings. Medicare Wellness Documentation is completed within the chart Need for immunization against influenza 03/06/2019 02/04/2020 Assessment & Plan (03/06/2019 9:56 AM CDT): Immunization provided in the office today Snoring 01/18/2019 05/31/2020 Assessment & Plan (02/05/2020 6:49 PM CDT): Will refer to [facility] Bill Prostate cancer screening 12/01/2018 Assessment & Plan (12/01/2018 11:24 AM CDT): Check labs Other fatigue 12/01/2018 02/04/2020 Assessment & Plan (12/01/2018 11:24 AM CDT): Probably multifactorial. Check labs and followup to re-evaluate BMI 28.0-28.9,adult 11/28/2018 11/19/19 21 Assessment & Plan (09/15/2020 8:11 AM CDT): Weight/BMI is in healthy range. Continue healthy lifestyle to maintain. Assessment & Plan (02/05/2020 6:54 PM CDT): Weight/BMI is in healthy range. Continue healthy lifestyle to maintain. Assessment & Plan (03/06/2019 9:10 AM CDT): Weight/BMI is in healthy range. Continue healthy lifestyle to maintain. Assessment & Plan (12/01/2018 11:23 AM CDT): Weight/BMI is in healthy range. Continue healthy lifestyle to maintain. Anxiety and depression 11/28/201806/07 Assessment & Plan (06/07/2020 5:40 PM TIMBER TRIMMER): Continue Cymbalta. If tolerates well, may incresae to 60mg. Assessment & Plan (05/31/2020 10:52 AM TIMBER TRIMMER): Discussed treatment option. Start Cymbalta 30mg daily. Reviewed risks, benefit, alternatives, side effects and proper use. F.u in a few weeks. Assessment & Plan (03/03/2019 10:15 PM CDT): Stable with prn Ativan. Assessment & Plan (12/01/2018 11:23 AM CDT): Stable with prn Ativan Excessive daytime sleepiness 12/26/2016 08/14/2022 Encounters Date Type Department Care Team Description 12/04/2024 11:30 AM CDT Office Visit [facility] Cardiology [address] [place] [address] Ravinder Hernandez MD Essential hypertension (Primary Dx); Mixed hyperlipidemia; Non-ischemic cardiomyopathy (HCC); PVC's (premature ventricular contractions); Paroxysmal atrial fibrillation (HCC); Ventricular bigeminy; LISA on CPAP 11/08/2024 Telephone [facility] Cardiology [address] [facility] 8th [place] [address] [place] [address] Leah Faulkner from Last 3 Months Immunizations Immunization Administration Dates Next Due Influenza, Quadrivalent, Hig h Dose, Preservative Free, Intrr 03/16/2022,03/12/2021,04/01/2020 Influenza, Trivalent, High D ose, Split, Preservative Free, Intramuscular 03/06/2019,03/05/2018,05/26/2016,02/26 Influenza, Trivalent, IM (MDV) 03/25/2013 Influenza, Trivalent, Preser vative Free, Intramuscular 05/27/2016 Influenza, Unspecified 04/17/2020 Pneumococcal Conjugate PCV 13 11/28/2018 Pneumococcal Polysaccharide PPV23 02/05/2020 Tdap 10/03/2016 ZOSTER LIVE 10/21/2011 ZOSTER Recombinant 09/10/2020,04/17/2020 Surgical History Surgery Date Site/Laterality Comments PROSTATE SURGERY 09/11/2007 - 10/10/2007 BACK SURGERY 11/11/2015 - 12/10/2015 CATARACT EXTRACTION W/ INTRA OCULAR LENS IMPLANT 06/12/1996 - 06/11/1997 Left Medical History Medical History Date Comments Hyperlipidemia Hypertension Thyroid disease Anxiety Allergic Cancer (HCC) Heart disease Family History Medical History Relation Name Comments Arthritis Father Heart disease Father Heart failure Father Hypertension Father Prostate cancer Father Thyroid disease Father Alzheimer's disease Mother Hypertension Mother Cardiomyopathy Son Relation Name Status Comments Father Mother Son Social History Tobacco Use Types Packs/Day Years Used Date Smoking Tobacco: Former Cigarettes Q uit: 1982 Smokeless Tobacco: Never Tobacco Cessation:Counseling Given: Not Answered Alcohol Use Standard Drinks/Week Comments Yes 0 (1 standard drink = 0.6 oz pur e alcohol) AUDIT-C Answer Date Recorded Q1: How often do you have a drink containing alcohol? 4 or more times a week 01/30/2023 Q2: How many drinks containi ng alcohol do you have on a typical day when you are drinking? 3 or 4 Q3: How often do you have si x or more drinks on one occasion? Daily or almost daily 01/30/2023 PHQ-2 Answer Date Recorded PHQ-2 Total Score (If total score is 3 or more points, staff should administer the PHQ-9) 0 01/30/2023 Sex and Gender Information Value Date Recorded Sex Assigned at Not on file Legal Sex Male 7:10 PM CDT Gender Identity Not on file Sexual Orientation Not on file Occupation Industry Job Start Date Job End Date Retired Not on file Not on file Not on file Obstetrics History Last Filed Vital Signs Vital Sign Reading Time Taken Comments Blood Pressure 134/84 12/04/2024 11:32 AM CDT Pulse 61 12/04/2024 11:32 AM CDT Temperature 36.7 C (98 F) 02/19/2024 9:50 AM CDT Respiratory Rate 18 01/03/2024 10:41 AM CDT Oxygen Saturation 96% 12/04/2024 11:32 AM CDT Inhaled Oxygen Concentration - - Weight 92.5 kg (204 lb) 12/04/2024 11:32 AM CDT Height 175.3 cm (5' 9) 12/04/2024 11:32 AM CDT Body Mass Index 30.13 12/04/2024 11:32 AM CDT Plan of Treatment Health Maintenance Due Date Last Done Comments Hepatitis C Screening 1945 Hepatitis B Screening 1963 Abdominal Aortic Aneurysm (A AA) Screen 11/04/2011 Depression Screening 01/31/2024 01/30/2023, 08/15/2022, 03/08/2021, Additional history exists Fall Risk Assessment 01/31/2024 01/30/2023, 08/15/2022, 02/10/2021, Additional history exists Well Visit 65+ 01/31/2024 01/30/2023, 11/2022, 02/10/2021, Additional history exists Influenza Vaccine (#1) 2025 , 03/12/2021, 04/17/2020, Additional history exists DTaP/Tdap/Td Vaccine (2 - Td or Tdap) 10/03/2026 10/03/2016 Colon Cancer Screening-CT Colonography Discontinued 03/15/2012 Colon Cancer Screening-Colonoscopy Discontinued 03/15/2012 Colon Cancer Screening-DNA Stool Discontinued 03/15/20 Colon Cancer Screening-FIT Discontinued 03/15/2012 Colon Cancer Screening-FOBT Discontinued 03/15/2012 Colon Cancer Screening-Sigmoidoscopy Discontinued 03/15/2012 Colorectal Cancer Screening Discontinued Pneumococcal vaccine 65+ Completed 02/05/2020, 11/10 Zoster Vaccine Completed 09/10/2020, 11/2019, 10/21/2011 Prostate Cancer Screening-PSA Discontinued , 01/06/2022, 10/15/2020, Additional history exists Procedures Procedure Name Priority Date/Time Associated Diagnosis Comments PSA SCREEN Routine 08/29/2022 8:16 AM CDT Prostate cancer screening COLONOSCOPY Routine 03/15/2012 from Last 3 Months or Most Recently Relevant to Health Maintenance Results * PSA screen (08/29/2022 8:16 AM CDT) PSA <0.1 0.0 - 4.0 ng/mL [facility] - 01 Comment: Brenden ECLIA methodology. According to the [place] [employer], Serum PSA should decrease and remain at undetectable levels after radical prostatectomy. The AUA defines biochemical recurrence as an initial PSA value 0.2 ng/mL or greater followed by a subsequent confirmatory PSA value 0.2 ng/mL or greater. Values obtained with different assay methods or kits cannot be used interchangeably. Results cannot be interpreted as absolute evidence of the presence or absence of malignant disease. Blood 08/29/2022 8:16 AM CDT 08/29/2022 Narrative [facility] - 08/30/2022 7:36 AM CDT Performed at: - [address] [id number] After School Program Assistant: Loc Corona PhD, Phone: [phone] Danyell ROD LAB BLOOD ORDERABLES Final Result [facility] - 01 * Colonoscopy (03/15/2012) Anatomical Region Laterality Modality Other Narrative 03/15/2012 Adenoma ---->2017 Dr. Adames Historical Provider MD ENDOSCOPY PROCEDURES Laurie l Result from Last 3 Months or Most Recently Relevant to Health Maintenance Insurance [facility] ADVANTAGE CHOICE PPO [facility] ADVANTAGE CHOICE PPO Care Teams Disability Case Manager Relationship Specialty Start Date End Date Renata Monson MD PCP - General Family Medicine 03/27/23 Sonu Hernandez MD Consulting Physician Cardiology 02/17/22
--- OUTSIDE RECORDS SUMMARY | 2024-12-20 10:58 | XMS_ITS | Referral Summary ---
Author Organization [facility] [address] [facility] Address [address] [place] [address] Care Team Providers Care Cafe Attendant Name Role Phone Sonu Hernandez MD Unavailable [phone] Rentaa Monson MD Primary Care Provider [phone] Encounters Date Type Department Care Team Description 12/04/2024 11:30 AM CDT Office Visit [facility] Cardiology [address] [facility] [address] [place] [address] Ravinder Hernandez MD Essential hypertension (Primary Dx); Mixed hyperlipidemia; Non-ischemic cardiomyopathy (HCC); PVC's (premature ventricular contractions); Paroxysmal atrial fibrillation (HCC); Ventricular bigeminy; LISA on CPAP 11/08/2024 Telephone [facility] Cardiology [address] [facility] 8th [place] [address] [place] [address] Leah Faulkner from Last 3 Months Allergies No known active allergies Medications omega-3 fatty acids-fish oil 360-1,200 mg capsule 1,200 mg daily Activ e multivit-min/FA/ly copen/lutein (CENTRUM SILVER MEN ORAL) Rx: Centrum Silver - Tablet Active gluc lewis/chondro lewis A/vit C/Mn (GLUCOSAMINE-CHOND ROIT-VIT C-MN) [phone] mg tablet Take by mouth daily Active [...] Acquired hypothyroidism TAKE 1 TABLET BY MOUTH EX CHEF BEFORE BREAKFAST 90 tablet 1 3 Active [...] AM CDT): Plans Cataract removal with Dr. Fernandez/Quantum Anxiety 02/01/2023 Assessment & Plan (02/01/2023 9:24 AM [...] agreement with the plan and would prefer [facility] Paroxysmal atrial fibrillation 02/18/2022 Overview (02/18/2022): Dx: 01/2022 Dr. Hernandez [facility]. Assessment & Plan (08/21/2022 11:27 PM CDT): Persistent AFib. Continue per Dr. Hernandez at [facility] and Dr. Hernandez at [facility] in [place] He is on Eliquis b.i.d. as well [...] agreement with the plan and would prefer [facility] Brachial neuritis 12/01/2021 Disorder of bursae of shoulder region 12/01/2021 Low back pain 12/01/2021 Osteoarthritis of both knees 12/01/2021 Abrasion of face 07/18/2021 Assessment & Plan (07/18/2021 1:34 PM WASHING MACHINE LOADER AND PULLER): Abrasion was cleaned with water and dressed with DEDE and a Band-Aid. These to look for signs or symptoms of infection. And follow-up if he has any further problems. Tinnitus 06/15/2021 Assessment & Plan (06/15/2021 10:01 PM WASHING MACHINE LOADER AND PULLER): Patient is noting tripping or cricket sounds in his ears. Is distracting and would like further evaluation. Will go ahead make the referral to the labor contractor and ENT and await recommendations. Right hip [...] he leaves. Offered physical therapy order for [place] but he is with [facility] and so I do not believe feel [...] monitor. Assessment & Plan (06/09/2020 12:33 PM WASHING MACHINE LOADER AND PULLER): Increased anxiety sxs. Patient admits having sxs for a very long time. Discussed medication options--- Reviewed risks, benefit, alternatives, side effects and proper use. Start Cymbalta for the indications of anxiety and pain. One daily. May increase to 60mg if tolerates well. Assessment & Plan (06/07/2020 5:41 PM WASHING MACHINE LOADER AND PULLER): Continue Cymbalta. If tolerates well, may incresae to 60mg. PVC's (premature ventricular contractions) 05/31 Assessment & Plan (06/07/2020 5:39 PM WASHING MACHINE LOADER AND PULLER): See HTN Assessment & Plan (05/31/2020 10:55 AM WASHING MACHINE LOADER AND PULLER): Patient follows with cardio Dr. Schneider. His [...] for supplies. DME [facility] Assessment & Plan (12/30/2022 11:13 AM CDT): The patient will continue with CPAP at 4-20 cm water pressure. Denied need for supplies. DME [facility] Assessment & Plan (08/21/2022 11:26 PM CDT): Continue CPAP per Dr. Garcia Assessment & Plan (12/01/2021 11:34 AM CDT): Patient continue to wear CPAP in auto titrating range of 4-20 cm water pressure while sleeping. His DME is [facility]. Assessment & Plan (02/21/2021 9:51 AM CDT): Continue to use CPAP Assessment & Plan (11/25/2020 11:27 AM CDT): Patient states that he would like to hold off on labs regarding his hypersomnia until after he speaks to the radiation safety officer on Monday. Assessment & Plan (11/18/2020 9:54 AM CDT): Tolerating well and can see improvement Assessment & Plan (06/07/2020 5:38 PM WASHING MACHINE LOADER AND PULLER): Continue CPAP Assessment & Plan (05/31/2020 10:51 AM WASHING MACHINE LOADER AND PULLER): Working on adjusting to machine/mask. Stressed importance of using nightly to avoid mcfp sequela Assessment & Plan (05/27/2020 12:02 PM WASHING MACHINE LOADER AND PULLER): The patient has been set up with an auto titrating CPAP unit with a range of 5- 20 cm water pressure. I will order a heated hose for him through [employer]. He is using and benefiting from the CPAP unit. Plantar fasciitis of left foot 04/20/2020 Assessment & Plan (09/15/2020 9:12 AM CDT): Left foot pain is improving. No fracture noted. Encouraged continued activity and monitor. NSAID prn. Call if sxs worsen or don't resolve. Assessment & Plan (04/20/2020 8:55 PM WASHING MACHINE LOADER AND PULLER): Keep stretching. Ice NSAIDs. Will make referral [...] of the warts. He is leaving for [place] at the end of the week so [...] function. Assessment & Plan (05/31/2020 10:52 AM WASHING MACHINE LOADER AND PULLER): Has been using NSAIDs. Will add Cymbalta for pain and anxiety management Assessment & Plan (02/05/2020 6:49 PM CDT): Continue IBU prn Assessment & Plan (03/06/2019 9:53 AM CDT): Requests ibuprofen prescription has uses it for chronic joint pain especially when he is walking down in [place]. Review do not exceed 2400 mg in [...] regimen Assessment & Plan (05/26/2019 6:36 PM WASHING MACHINE LOADER AND PULLER): Continue antihistamine, flonase and mucinex. Start Singulair. [...] cardio Assessment & Plan (06/07/2020 5:39 PM WASHING MACHINE LOADER AND PULLER): Stable. Continue the Metoprolol Xl 25. Pulled [...] 22 Assessment & Plan (06/15/2021 11:24 AM WASHING MACHINE LOADER AND PULLER): Weight/BMI is in healthy range. Continue healthy [...] 21 Assessment & Plan (06/07/2020 5:40 PM WASHING MACHINE LOADER AND PULLER): Weight/BMI is in healthy range. Continue healthy lifestyle to maintain. Assessment & Plan (05/27/2020 1:36 PM WASHING MACHINE LOADER AND PULLER): Weight/BMI is in healthy range. Continue healthy [...] 11/28/201806/07 Assessment & Plan (06/07/2020 5:40 PM WASHING MACHINE LOADER AND PULLER): Continue Cymbalta. If tolerates well, may incresae to 60mg. Assessment & Plan (05/31/2020 10:52 AM WASHING MACHINE LOADER AND PULLER): Discussed treatment option. Start Cymbalta 30mg daily. Reviewed risks, benefit, alternatives, side effects and proper use. F.u in a few weeks. Assessment & Plan (03/03/2019 10:15 PM CDT): Stable with prn Ativan. Assessment & Plan (12/01/2018 11:23 AM CDT): Stable with prn Ativan Excessive daytime sleepiness 12/26/2016 08/14/2022 Immunizations Immunization Administration Dates Next Due Influenza, Quadrivalent, Hig h Dose, Preservative Free, Intrr 03/16/2022,03/12/2021,04/01/2020 Influenza, Trivalent, High D ose, Split, Preservative Free, Intramuscular 03/06/2019,03/05/2018,05/26/2016,02/26 Influenza, Trivalent, IM (MDV) 03/25/2013 Influenza, Trivalent, Preser vative Free, Intramuscular 05/27/2016 Influenza, Unspecified 04/17/2020 Pneumococcal Conjugate PCV 13 11/28/2018 Pneumococcal Polysaccharide PPV23 02/05/2020 Tdap 10/03/2016 ZOSTER LIVE 10/21/2011 ZOSTER Recombinant 09/10/2020,04/17/2020 Social History Tobacco Use Types Packs/Day Years [...] file Not on file Not on file Last Filed Vital Signs [...] 12/04/2024 11:32 AM CDT Plan of Treatment Not on file Procedures Procedure Name Priority Date/Time Associated Diagnosis Comments PSA SCREEN Routine 08/29/2022 8:16 AM CDT Prostate cancer screening COLONOSCOPY Routine 03/15/2012 from Last 3 Months or Most Recently Relevant to Health Maintenance Results * PSA screen (08/29/2022 8:16 AM CDT) PSA <0.1 0.0 - 4.0 ng/mL [facility] - 01 Comment: Brenden ECLIA methodology. According to the [place] [employer], Serum PSA should decrease and [...] - 08/30/2022 7:36 AM CDT Performed at: [address] [id number] [employer]ws Faculty Assistant: Loc Corona PhD, Phone: [phone] Danyell ROD LAB BLOOD ORDERABLES Final Result Performing Organization Address City/State/[facility] Co de Phone Number [facility] - 01 * Colonoscopy (03/15/2012) Anatomical Region Laterality Modality Other Narrative 03/15/2012 Adenoma ---->2017 Dr. Adames Historical Provider ENDOSCOPY PROCEDURES Laurie l Result from Last 3 Months or Most Recently Relevant to Health Maintenance Insurance [facility] ADVANTAGE CHOICE PPO [facility] HEALTHCARE [facility] ADVANTAGE CHOICE PPO Care Teams Cafe Attendant Relationship Specialty Start Date End Date Renata Monson MD PCP - General Family Medicine 03/27/23 Sonu Hernandez MD Consulting Physician Cardiology 02/17/22
== END 2024-12-20 10:48 | disposition home or self-care (01) ==
LOC: ANHSURGERY 10:51
PROVIDERS: PCP Family Medicine; Visit Provider Orthopaedic Surgery
DX: R94.31 Abnormal electrocardiogram [ECG] [EKG] (principal); E78.5 Hyperlipidemia, unspecified; I10 Essential (primary) hypertension; Z01.810 Encounter for preprocedural cardiovascular examination; Z87.891 Personal history of nicotine dependence
CPT/HCPCS: 93005

== ENCOUNTER 2024-12-24 00:17 | Day surgery (SDC) | payer OTHER, SELFPAY ==
[2024-12-19 15:15] VITALS: BMI 30.2
--- NOTE | 2024-12-19 15:33 | PC.NURSE ---
Report to the Outpatient Waiting Room, entrance under the green pavilion located off [facility], at time __1130am on date _12/24/24 . Planned Procedure Time: __1:30pm .? Time changes happen often and if your time is changed the preop area will call you the afternoon before. - You and your visitor will be asked to self-screen and do not enter if you have any COVID symptoms. Please call surgeon if you need to reschedule. - A mask is optional within the hospital at this time. Patients may have clear liquids (water, carbonated beverages, clear teas, apple juice) until 3 hours prior to surgery with a maximum of 20 ounces. - No food from midnight until time of surgery and no smoking, or chewing tobacco (or any form of nicotine). No chewing gum, candy or mints. (10:30am) Take only the following medications with a SIP of water on the morning of surgery: ___Duloxetine, Levothyroxine, Metoprolol, Tylenol if needed DO NOT STOP ANY OF YOUR OTHER PRESCRIPTION MEDICATIONS PRIOR TO SURGERY EXCEPT THE FOLLOWING Hold all vitamins and supplements for 3 days per anesthesiologist. Date to take is last dose is 12/20/24 Medications to discontinue per physician _Kevin for [address] Hernandez, Date of last dose is 12/20/24 Hold all NSAIDS or Aspirin [address] Delong Date to take last dose__12/15/24 Please no make-up, nail citizen of [place], hairspray, perfume, deodorant, or body powder the day of surgery.? No jewelry (including any body piercings) or valuables the day of surgery, leave them at home.? Please take a shower or bath the night before, or the morning of, surgery with an antibacterial soap.? Wear comfortable, loose fitting clothing.? - Jewelry must be removed prior to entering the operating room.? Rings and piercings that are not removed may be cut off. - The hospital will not accept responsibility for valuables.? - Please leave all valuables, including medications, at home the day of surgery. If you are going home after surgery, a licensed sales driver must drive you home.? - NO public transportation without another adult if you receive anesthesia. - We recommend that an adult stay with you for 24 hours following discharge. - We also recommend that you do not drive, make important decision, drink alcoholic beverages, or take any drugs that were not prescribed by your health care provider for at least 24 hours after your discharge time. Follow any additional instructions given to you from your surgeon. Telephone instructions given to ___Patient and asked if any additional questions and then verbalized understanding. Patient advised to call surgeon office or pre surgery nurse liaison [phone] if any additional questions.
[2024-12-24] VITALS (8 sets, daily range): BP systolic 121–164; BP diastolic 72–96; PULSE 50–74; RESP 11–16; TEMP 36.4–36.6; O2SAT 95–99; BMI 29.5
--- OUTSIDE RECORDS SUMMARY | 2024-12-24 00:20 | XMS_ITS | Encounter Summary ---
Author Organization [facility] Health Address [address] [facility] [place] [address] Care Team Providers Care Medical Lab Technologist Name Role Phone Rito Alejandra MD Unavailable [phone] Renata Monson MD Primary Care Provider [phone] Encounter Details Date Type Department Care Team (Late st Contact Info) Description 04/14/2020 Lab Requisition [facility] DermPath Lab [address] [place] [address] Matt Crawford MD [address] [facility] [place] [address] Social History Tobacco Use Types Packs/Day Years Used Date Smoking Tobacco: Unknown Alcohol Use Standard Drinks/Week Comments Not Asked 0 (1 standard drink = 0.6 oz pur e alcohol) Sex and Gender Information Value Date Recorded Sex Assigned at Not on file Legal Sex Male 5:22 AM THIRD RAIL INSTALLER Gender Identity Not on file Sexual Orientation Not on file documented as of this encounter Plan of Treatment Not on file documented as of this encounter Procedures Procedure Name Priority Date/Time Associated Diagnosis Comments DERMATOPATHOLOGY Routine 04/13/2020 12:0 0 AM THIRD RAIL INSTALLER documented in this encounter Results * DERMATOPATHOLOGY (04/13/2020 12:00 AM THIRD RAIL INSTALLER) Case Report Dermatopathology Report Case: [id number] Authorizing Provider: Matt Crawford MD Collected: 04/13/2020 12:00 AM Ordering Location: [facility] Lab Received: 04/14/2020 06:12 AM Pathologist: Kiah Antunez MD Specimens: A) - Skin, right cheek B) - Skin, left buttock 0 11:24 AM [facility] DERMATOPATHOLOGY LABORATORY Final Diagnosis Specimen A. SKIN, right cheek: INTRADERMAL MELANOCYTIC NEVUS (D22.39) EPIDERMOID CYST (L72.0) Specimen B. SKIN, left buttock: ACROCHORDON (SOFT FIBROMA, SKIN TAG) (L91.8) 0 11:24 AM [facility] DERMATOPATHOLOGY LABORATORY at [address] THIRD RAIL INSTALLER Clinical History A: Irrit nevus vs BCCA. Path # [id number]. B: Skin tag. Path # [id number]. 0 11:24 AM [facility] DERMATOPATH[facility]Y [facility]OR[facility] Gross Description Specimen A: Received is one formalin filled container labeled with the patient's name and designated right cheek. The specimen consists of a shave biopsy measuring [id number]. Jar 0. Specimen B: Received is one formalin filled container labeled with the patient's name and designated left buttock. The specimen consists of a shave biopsy (2 pieces) measuring [id number] & [id number]. Jar 0. 0 11:24 AM [facility] DERMATOPATHOLOGY [facility]ORATORY Microscopic Description Specimen A. SKIN, [...] and collagen are intermingled. 0 11:24 AM [facility] DERMATOPATHOLOGY LABORATORY Disclaimer An external and internal positive and negative controls are appropriate for the histochemical, immunohistochemical and immunofluorescence stain(s) in this case (if any), except where stated explicitly. The performance characteristics of the stain(s) cited in this report were developed and its performance characteristic determined by the Dermatopathology Laboratory at [facility], directed by Dr. Sharon Rosales. These tests need not be, and therefore are not, approved by the [place] Food and Drug Administration. The tests are used for clinical purposes. Billing Codes Specimen Charges Stain Charges 28367 [id number] 1 1 0 11:24 AM THIRD RAIL INSTALLER DERMATOPATHOLOGY LABORATORY Embedded Images 0 11:24 AM THIRD RAIL INSTALLER DERMATOPATHOLOGY LABORATORY Pathology/Cytology TISSUE SPECIMEN FROM SKIN / Unknown 04/13/2020 04/14/2020 6:12 AM THIRD RAIL INSTALLER Miscellaneous samples (specimen) TISSUE SPECIMEN FROM SKIN / Unknown 04/13/2020 04/14/2020 6:12 AM THIRD RAIL INSTALLER us Matt Crawford MD LAB - PATHOLOGY/CYTOLOGY ORDER BOONE Final Result DERMATOPATHOLOGY LABORATORY [facility] - Department of Dermatology [facility] Medicine [address] [place] [address], [address] [phone] documented in this encounter Visit Diagnoses Not on filedocumented in this encounter Care Teams Medical Lab Technologist Relationship Specialty Start Date End Date Renata Monson MD [address] [place] [address] PCP - General Family Medicine 07/08/24 [place] [address] [place] [id number] Orthopedic Surgery 08/16/13 documented as of this encounter
--- OUTSIDE RECORDS SUMMARY | 2024-12-24 00:20 | XMS_ITS | Encounter Summary ---
Author Organization [facility] Care Team Providers Care Microarray Analyst Name Role Phone Danyell Mahoney Primary Care Provider [phone] Sonu Hernandez MD Unavailable [phone] Renata Monson MD Primary Care Provider [phone] Encounter Details Date Type Department Care Team (Latest Contact Info) Description 11/24/2016 Orders Only [facility] ProviderSachi MD [address] [place] [phone] Social History Tobacco Use Types Packs/Day Years [...] on filedocumented in this encounter Care Teams Microarray Analyst Relationship Specialty Start Date End Date Danyell Mahoney PA [address] [place] [address] PCP - General Internal Medicine 11/09/18 03/26/23 Renata Monson MD [address] [place] [address] PCP - General Family Medicine 03/27/23 Sonu Hernandez MD [address] [place] [address] Consulting Physician Cardiology 02/17/22 documented as of this encounter
--- OUTSIDE RECORDS SUMMARY | 2024-12-24 00:20 | XMS_ITS | Clinical Summary ---
Author Organization [facility] Address [address] [place] [address] Care Team Providers Care Granite Cutter Apprentice Name Role Phone Rito Alejandra MD Unavailable [phone] Renata Monson MD Primary Care Provider [phone] Source Comments [facility] deltamethod,non-owned Affiliates and Associated Physician Practices is amultiple site organization consisting of ambulatory clinics and hospital sitesin [place], [place], [place] and [place]. This disclosure is being madepursuant to the Care Everywhere program and may not contain all information available regarding this patient. Last updated 18.[facility] deltamethod Allergies No known active allergies Medications * [...] on file Legal Sex Male 5:22 AM DIRECTOR INDUSTRIAL RELATIONS Gender Identity Not on file Sexual Orientation Not on file Last Filed Vital Signs Vital Sign Reading Time Taken Comments Blood Pressure - - Pulse - - Temperature - - Respiratory Rate - - Oxygen Saturation - - Inhaled Oxygen Concentration - - Weight 83.9 kg (185 lb) 08/16/2013 10:53 AM DIRECTOR INDUSTRIAL RELATIONS Height 177.8 cm (5' 10) 08/16/2013 10:53 AM DIRECTOR INDUSTRIAL RELATIONS Body Mass Index 26.54 08/16/2013 10:53 AM DIRECTOR INDUSTRIAL RELATIONS Plan of Treatment Health Maintenance Due Date [...] [employer] PPO Care Teams Granite Cutter Apprentice Relationship Specialty Start Date End Date Renata Monson MD [address] [place] [address] PCP - General Family Medicine 07/08/24 [place] [address] [place] [id number] Orthopedic Surgery 08/16/13
--- OUTSIDE RECORDS SUMMARY | 2024-12-24 00:20 | XMS_ITS | Referral Summary ---
Author Organization [facility] [address] [facility] Address [address] [place] [address] Care Team Providers Care Environmental Services Specialist Name Role Phone Sonu Hernandez MD Unavailable [phone] Renata Monson MD Primary Care Provider [phone] Encounters Date Type Department Care Team Description 12/04/2024 11:30 AM CDT Office Visit [facility] Cardiology [address] [place] [address] Ravinder Hernandez MD Essential hypertension (Primary Dx); Mixed hyperlipidemia; Non-ischemic cardiomyopathy (HCC); PVC's (premature ventricular contractions); Paroxysmal atrial fibrillation (HCC); Ventricular bigeminy; LISA on CPAP 11/08/2024 Telephone [facility] [address] [facility] 8[address] [place] [address] [place] [id number] Leah Faulkner from Last 3 Months Allergies No known active allergies Medications omega-3 fatty acids-fish oil 360-1,200 mg capsule 1,200 mg daily Activ e multivit-min/FA/ly copen/lutein (CENTRUM SILVER MEN ORAL) Rx: Centrum Silver - Tablet Active gluc lewis/chondro lewis A/vit C/Mn (GLUCOSAMINE-CHOND ROIT-VIT C-MN) [id number] mg tablet Take by mouth daily Active [...] Acquired hypothyroidism TAKE 1 TABLET BY MOUTH DOCK OPERATOR BEFORE BREAKFAST 90 tablet 1 3 Active [...] agreement with the plan and would prefer [facility] Paroxysmal atrial fibrillation 02/18/2022 Overview (02/18/2022): Dx: 01/2022 Dr. Hernandez [facility]. Assessment & Plan (08/21/2022 11:27 PM CDT): Persistent AFib. Continue per Dr. Hernandez at [facility] and Dr. Hernandez at [facility] in [place] He is on Eliquis b.i.d. as well [...] agreement with the plan and would prefer [facility] Brachial neuritis 12/01/2021 Disorder of bursae of shoulder region 12/01/2021 Low back pain 12/01/2021 Osteoarthritis of both knees 12/01/2021 Abrasion of face 07/18/2021 Assessment & Plan (07/18/2021 1:34 PM CONCRETE PIPE MACHINE OPERATOR): Abrasion was cleaned with water and dressed with DEDE and a Band-Aid. These to look for signs or symptoms of infection. And follow-up if he has any further problems. Tinnitus 06/15/2021 Assessment & Plan (06/15/2021 10:01 PM CONCRETE PIPE MACHINE OPERATOR): Patient is noting tripping or cricket sounds in his ears. Is distracting and would like further evaluation. Will go ahead make the referral to the veterinary surgeon and ENT and await recommendations. Right hip [...] he leaves. Offered physical therapy order for [place] but he is with [facility] and so I do not believe feel [...] monitor. Assessment & Plan (06/09/2020 12:33 PM CONCRETE PIPE MACHINE OPERATOR): Increased anxiety sxs. Patient admits having sxs for a very long time. Discussed medication options--- Reviewed risks, benefit, alternatives, side effects and proper use. Start Cymbalta for the indications of anxiety and pain. One daily. May increase to 60mg if tolerates well. Assessment & Plan (06/07/2020 5:41 PM CONCRETE PIPE MACHINE OPERATOR): Continue Cymbalta. If tolerates well, may incresae to 60mg. PVC's (premature ventricular contractions) 05/31 Assessment & Plan (06/07/2020 5:39 PM CONCRETE PIPE MACHINE OPERATOR): See HTN Assessment & Plan (05/31/2020 10:55 AM CONCRETE PIPE MACHINE OPERATOR): Patient follows with cardio Dr. Schneider. His [...] hypersomnia until after he speaks to the overlock sewing machine operator on Monday. Assessment & Plan (11/18/2020 9:54 AM CDT): Tolerating well and can see improvement Assessment & Plan (06/07/2020 5:38 PM CONCRETE PIPE MACHINE OPERATOR): Continue CPAP Assessment & Plan (05/31/2020 10:51 AM CONCRETE PIPE MACHINE OPERATOR): Working on adjusting to machine/mask. Stressed importance of using nightly to avoid long-term sequela Assessment & Plan (05/27/2020 12:02 PM CONCRETE PIPE MACHINE OPERATOR): The patient has been set up with an auto titrating CPAP unit with a range of 5- 20 cm water pressure. I will order a heated hose for him through [employer]. He is using and benefiting from the CPAP unit. Plantar fasciitis of left foot 04/20/2020 Assessment & Plan (09/15/2020 9:12 AM CDT): Left foot pain is improving. No fracture noted. Encouraged continued activity and monitor. NSAID prn. Call if sxs worsen or don't resolve. Assessment & Plan (04/20/2020 8:55 PM CONCRETE PIPE MACHINE OPERATOR): Keep stretching. Ice NSAIDs. Will make referral [...] of the warts. He is leaving for [place] at the end of the week so [...] function. Assessment & Plan (05/31/2020 10:52 AM CONCRETE PIPE MACHINE OPERATOR): Has been using NSAIDs. Will add Cymbalta for pain and anxiety management Assessment & Plan (02/05/2020 6:49 PM CDT): Continue IBU prn Assessment & Plan (03/06/2019 9:53 AM CDT): Requests ibuprofen prescription has uses it for chronic joint pain especially when he is walking down in [place]. Review do not exceed 2400 mg in [...] regimen Assessment & Plan (05/26/2019 6:36 PM CONCRETE PIPE MACHINE OPERATOR): Continue antihistamine, flonase and mucinex. Start Singulair. [...] cardio Assessment & Plan (06/07/2020 5:39 PM CONCRETE PIPE MACHINE OPERATOR): Stable. Continue the Metoprolol Xl 25. Pulled [...] 22 Assessment & Plan (06/15/2021 11:24 AM CONCRETE PIPE MACHINE OPERATOR): Weight/BMI is in healthy range. Continue healthy [...] 21 Assessment & Plan (06/07/2020 5:40 PM CONCRETE PIPE MACHINE OPERATOR): Weight/BMI is in healthy range. Continue healthy lifestyle to maintain. Assessment & Plan (05/27/2020 1:36 PM CONCRETE PIPE MACHINE OPERATOR): Weight/BMI is in healthy range. Continue healthy [...] 11/28/201806/07 Assessment & Plan (06/07/2020 5:40 PM CONCRETE PIPE MACHINE OPERATOR): Continue Cymbalta. If tolerates well, may incresae to 60mg. Assessment & Plan (05/31/2020 10:52 AM CONCRETE PIPE MACHINE OPERATOR): Discussed treatment option. Start Cymbalta 30mg daily. [...] Comment: Brenden ECLIA methodology. According to the [place] [employer], Serum PSA should decrease and [...] - 08/30/2022 7:36 AM CDT Performed at: [address] [id number] Claim Clerk: Loc Corona PhD, Phone: [phone] Danyell ROD LAB BLOOD ORDERABLES Final Result Performing Organization Address City/State/[facility] Co de Phone Number [facility] - 01 * Colonoscopy (03/15/2012) Anatomical Region Laterality Modality Other Narrative 03/15/2012 Adenoma ---->2017 Dr. Adames Historical Provider ENDOSCOPY PROCEDURES Laurie l Result from Last 3 Months or Most Recently Relevant to Health Maintenance Insurance [facility] CHOICE PPO [facility] CHO[facility] PPO Care Teams Environmental Services Specialist Relationship Specialty Start Date End Date Renata Monson MD PCP - General Family Medicine 03/27/23 Sonu Hernandez MD Consulting Physician Cardiology 02/17/22
--- OUTSIDE RECORDS SUMMARY | 2024-12-24 00:20 | XMS_ITS | Clinical Summary ---
Author Organization [facility] Address [address] [place] [address] Care Team Providers Care Rail Car Painter/Sandblaster Name Role Phone Unavailable Primary Care Provider [...]
--- OUTSIDE RECORDS SUMMARY | 2024-12-24 00:20 | XMS_ITS | Clinical Summary ---
Author Organization [facility] [address] [facility] Address [address] [place] [address] Care Team Providers Care Flight Surgeon Name Role Phone Sonu Hernandez MD Unavailable [phone] Renata Monson MD Primary Care Provider [phone] Allergies No known active allergies Medications omega-3 fatty acids-fish oil 360-1,200 mg capsule 1,200 mg daily Activ e multivit-min/FA/ly copen/lutein (CENTRUM SILVER MEN ORAL) Rx: Centrum Silver - Tablet Active gluc lewis/chondro lewis A/vit C/Mn (GLUCOSAMINE-CHOND ROIT-VIT C-MN) 968-377-48-5 mg tablet Take by mouth daily Active [...] Acquired hypothyroidism TAKE 1 TABLET BY MOUTH WELFARE WORKER BEFORE BREAKFAST 90 tablet 1 3 Active [...] agreement with the plan and would prefer [facility] or [facility] Paroxysmal atrial fibrillation 02/18/2022 Overview (02/18/2022): Dx: 01/2022 Dr. Hernandez [facility]. Assessment & Plan (08/21/2022 11:27 PM CDT): Persistent AFib. Continue per Dr. Hernandez at [facility] and Dr. Hernandez at [facility] in [place] He is on Eliquis b.i.d. as well [...] agreement with the plan and would prefer [facility] or [facility] Brachial neuritis 12/01/2021 Disorder of bursae of shoulder region 12/01/2021 Low back pain 12/01/2021 Osteoarthritis of both knees 12/01/2021 Abrasion of face 07/18/2021 Assessment & Plan (07/18/2021 1:34 PM RAILROAD CARMAN): Abrasion was cleaned with water and dressed with DEDE and a Band-Aid. These to look for signs or symptoms of infection. And follow-up if he has any further problems. Tinnitus 06/15/2021 Assessment & Plan (06/15/2021 10:01 PM RAILROAD CARMAN): Patient is noting tripping or cricket sounds in his ears. Is distracting and would like further evaluation. Will go ahead make the referral to the mandrel cleaner and ENT and await recommendations. Right hip [...] he leaves. Offered physical therapy order for [place] but he is with [facility] and so [...] monitor. Assessment & Plan (06/09/2020 12:33 PM RAILROAD CARMAN): Increased anxiety sxs. Patient admits having sxs for a very long time. Discussed medication options--- Reviewed risks, benefit, alternatives, side effects and proper use. Start Cymbalta for the indications of anxiety and pain. One daily. May increase to 60mg if tolerates well. Assessment & Plan (06/07/2020 5:41 PM RAILROAD CARMAN): Continue Cymbalta. If tolerates well, may incresae to 60mg. PVC's (premature ventricular contractions) 05/31 Assessment & Plan (06/07/2020 5:39 PM RAILROAD CARMAN): See HTN Assessment & Plan (05/31/2020 10:55 AM RAILROAD CARMAN): Patient follows with cardio Dr. Schneider. His [...] hypersomnia until after he speaks to the airframe design engineer on Monday. Assessment & Plan (11/18/2020 9:54 AM CDT): Tolerating well and can see improvement Assessment & Plan (06/07/2020 5:38 PM RAILROAD CARMAN): Continue CPAP Assessment & Plan (05/31/2020 10:51 AM RAILROAD CARMAN): Working on adjusting to machine/mask. Stressed importance of using nightly to avoid intermodal truck driver sequela Assessment & Plan (05/27/2020 12:02 PM RAILROAD CARMAN): The patient has been set up with an auto titrating CPAP unit with a range of 5- 20 cm water pressure. I will order a heated hose for him through [facility]. He is using and benefiting from the CPAP unit. Plantar fasciitis of left foot 04/20/2020 Assessment & Plan (09/15/2020 9:12 AM CDT): Left foot pain is improving. No fracture noted. Encouraged continued activity and monitor. NSAID prn. Call if sxs worsen or don't resolve. Assessment & Plan (04/20/2020 8:55 PM RAILROAD CARMAN): Keep stretching. Ice NSAIDs. Will make referral [...] of the warts. He is leaving for [place] at the end of the week so [...] function. Assessment & Plan (05/31/2020 10:52 AM RAILROAD CARMAN): Has been using NSAIDs. Will add Cymbalta for pain and anxiety management Assessment & Plan (02/05/2020 6:49 PM CDT): Continue IBU prn Assessment & Plan (03/06/2019 9:53 AM CDT): Requests ibuprofen prescription has uses it for chronic joint pain especially when he is walking down in [place]. Review do not exceed 2400 mg in [...] regimen Assessment & Plan (05/26/2019 6:36 PM RAILROAD CARMAN): Continue antihistamine, flonase and mucinex. Start Singulair. [...] cardio Assessment & Plan (06/07/2020 5:39 PM RAILROAD CARMAN): Stable. Continue the Metoprolol Xl 25. Pulled [...] 22 Assessment & Plan (06/15/2021 11:24 AM RAILROAD CARMAN): Weight/BMI is in healthy range. Continue healthy [...] 21 Assessment & Plan (06/07/2020 5:40 PM RAILROAD CARMAN): Weight/BMI is in healthy range. Continue healthy lifestyle to maintain. Assessment & Plan (05/27/2020 1:36 PM RAILROAD CARMAN): Weight/BMI is in healthy range. Continue healthy [...] 11/28/201806/07 Assessment & Plan (06/07/2020 5:40 PM RAILROAD CARMAN): Continue Cymbalta. If tolerates well, may incresae to 60mg. Assessment & Plan (05/31/2020 10:52 AM RAILROAD CARMAN): Discussed treatment option. Start Cymbalta 30mg daily. [...] [facility] [address] [place] [address] Ravinder Hernandez MD Essential hypertension (Primary Dx); Mixed hyperlipidemia; Non-ischemic cardiomyopathy (HCC); PVC's (premature ventricular contractions); Paroxysmal atrial fibrillation (HCC); Ventricular bigeminy; LISA on CPAP 11/08/[address] [facility]iology [address] [facility] [address] [place] [address] [place] [address] Leah Faulkner from Last 3 [...] Comment: Brenden ECLIA methodology. According to the [place] [employer], Serum PSA should decrease and [...] 08/30/2022 7:36 AM CDT Performed at: - [address] [id number] Addictions Counselor Assistant: Loc Corona PhD, Phone: [phone] Danyell ROD LAB BLOOD ORDERABLES Final Result [facility] - 01 * Colonoscopy (03/15/2012) Anatomical Region Laterality Modality Other Narrative 03/15/2012 Adenoma ---->2017 Dr. Adames Historical Provider MD ENDOSCOPY PROCEDURES Laurie l Result from Last 3 Months or Most Recently Relevant to Health Maintenance Insurance [facility] ADVANTAGE CHOICE PPO [facility] ADVANTAGE CHOICE PPO Care Teams Flight Surgeon Relationship Specialty Start Date End Date Renata Monson MD PCP - General Family Medicine 03/27/23 Sonu Hernandez MD Consulting Physician Cardiology 02/17/22
[2024-12-24] MEDS: ceFAZolin 2 GM in SODIUM CHLORIDE 0.9% IV 50 ML 100 ML IVPB (01:25)
--- NOTE | 2024-12-24 09:23 | WPDHPUPDATE1 ---
History and Physical Update Update Date/Time: 12/24/24 09:23 History and Physical has been reviewed, including an updated exam of the patient. There are NO changes in the patient's condition. Risks, benefits, and alternatives have been discussed and questions answered. Patient agrees to proceed with procedure.
--- NOTE | 2024-12-24 12:45 | WPDANESEPPF ---
Anes - Initial Pre Proc Eval Procedure: Operation Date: 12/24/24 13:30 Proposed Procedures p Right Knee Arthroscopy, Partial Medial Meniscectomy with Microfracture - Nathan Delong MD Date/Time: 12/24/24 12:45 Surgeon: Nathan Delong MD Pre Op Diagnosis: rt knee medial meniscal tear w insufficiency frac Patient Data Age: 79 Gender: M Height: 1.75 m Weight: 93 kg Allergies Allergy/AdvReac Type Severity Reaction Status Date / Time No Known Drug Allergies Allergy Unknown Unknown Verified 12/19/24 15:07 Home Medications ?Medication ?Instructions ?Recorded ?Confirmed ?Type apixaban 5 mg tablet (Eliquis) 5 mg PO BID 03/31/23 12/19/24 History lorazepam 0.5 mg tablet 0.5 mg PO QHS PRN sedation 03/31/23 12/19/24 History sildenafil 100 mg tablet 100 mg PO DAILY PRN sexual 05/15/23 12/19/24 Rx activity #10 tabs meclizine 25 mg tablet 25 mg PO BID PRN dizziness #30 tabs 10/11/23 12/19/24 Rx levothyroxine 75 mcg tablet 75 mcg PO DAILY #90 tabs 07/08/24 12/19/24 Rx cetirizine 10 mg capsule (Zyrtec) 10 mg PO DAILY PRN allergy symptoms 08/21/24 12/19/24 History coenzyme Q10 10 mg capsule (Co 10 mg PO ONCE 08/21/24 12/19/24 History Q-10) fluticasone furoate 27.5 1 spray intranasal DAILY 08/21/24 12/19/24 History mcg/actuation nasal spray,suspension multivitamin with minerals-folic 1 tablet PO DAILY 08/21/24 12/19/24 History acid 80 mcg chewable tablet (Centrum Adult 50 Plus) omega 4-yha-jui-fish oil 100 1 cap PO DAILY 08/21/24 12/19/24 History mg-160 mg-1,000 mg capsule (Fish Oil) ibuprofen 600 mg tablet 600 mg PO DAILY PRN pain #30 tabs 11/06/24 12/19/24 Rx losartan 100 mg tablet 100 mg PO DAILY #90 tabs 11/14/24 12/19/24 Rx metoprolol succinate 100 mg 100 mg PO DAILY #90 tabs 11/14/24 12/19/24 Rx tablet,extended release 24 hr duloxetine 30 mg capsule,delayed 30 mg PO DAILY #30 caps 12/10/24 12/19/24 Rx release rosuvastatin 10 mg tablet 10 mg PO DAILY #90 tabs 12/18/24 12/19/24 Rx Patient hx anesthesia problems: none Family hx anesthesia problems: none Results Review: All pre-operative results and documents have been reviewed as part of the pre-operative evaluation. [facility] Past Medical History Medical History H/O prostate cancer Hypothyroid Hypertension Dyslipidemia Surgical History Surgical History History of lumbar spinal fusion Family History Family History Father CHF (congestive heart failure) Social History Social History Smoking packs per day: 1 Smoking cigarettes per day: 20.0 Years smoked: 20 Smoking pack-years: 20.00 Smoking status: Former smoker Tobacco type: cigarettes Second hand tobacco smoke exposure: Yes Smoking end date: 06/12/94 Alcohol intake: current Drinks per week: 2 Substance use: never Substance use type: does not use Living arrangements: with family Additional living arrangements comments: Spiritual care concerns: No Anes - Eval Final PreProcedure Day of Procedure 12/24/24 12:45 Patient weight: obese Heart: irregular rhythm Lungs: normal air movement Airway: Mallampati scale class II Neurological: alert and oriented Last oral intake: >/= 8 hours ASA classification: III Emergent: no Anesthetic plan: proceed Anesthesia type and monitoring: general LMA and standard monitoring Results Review: All pre-operative results and documents have been reviewed as part of the pre-operative evaluation. HTN, hyperlipidemia, afib, LISA on CPAP. Ex smoker. Informed Consent: The patient's anesthetic plan and its attendant risks and benefits were discussed with the patient/family/POA. Questions were solicited and answers provided to the satisfaction of the patient/family/POA.
[2024-12-24] MEDS: BUPIVACAINE/EPINEPHRINE 0.5% 50 ML VIAL 20 ML INFILTRATE (13:04)
--- NOTE | 2024-12-24 13:50 | P.OP_ITS ---
Procedure Note - Detailed Date of Procedure 12/24/24 Pre-op Diagnosis 1. 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 Medial meniscus tear right Post-op Diagnosis Same Procedure Performed 1. Arthroscopic partial medial meniscectomy, right knee, with abrasion arthroplasty (debridement of the osteochondral defect) medial condyle. Surgeon Nathan Delong MD Anesthesia General Findings Large delaminating full-thickness osteochondral defect involving the majority of the weight-bearing and posterior medial femoral condyle. 2 mm medial to lateral and 3 mm length saldivar. The tissue was a highly unstable and was removed with the arthroscopic graspers in several pieces. The bone bed was sclerotic and appeared somewhat necrotic consistent with the previous insufficiency fracture noted on MRI. Microfracture was not indicated due to the large uncontained defect. Abrasion was performed with the arthroscopic curette gently to stimulate a bleeding bone bed. In meniscus showed mild splitting medially and posteriorly. Gentle debridement was performed, but posteriorly was left in- situ. Description of Procedure The patient was identified and the surgical site confirmed and signed in the preoperative holding area. Antibiotics were started per protocol, and the patient was brought to the operative room and transferred to the OR table. A general anesthetic was administered. Supine position with the operative lower extremity position in the leg krause after placement of a well padded tourniquet. The leg support was lowered and the contralateral limb was supported with a soft bolster. The knee was prepped and draped in the usual sterile fashion. A time-out was performed. The portal sites were marked and infiltrated with 0.5% Marcaine 20 mL. The limb was exsanguinated and the tourniquet inflated to 300 mL Hg. Standard inferolateral and inferomedial portals were established. Inflow was obtained with the saline pump. The camera was introduced. Diagnostic inspection of the joint was accomplished. Immediately it was evident that the medial femoral condyle displayed very large osteochondral defect involving most of the condyle. The large remaining cartilage full-thickness fragment was minimally attached. It was easily detached and removed in several pieces with the arthroscopic rasp. Defect was estimated at 2 cm medial to lateral and 3 cm in length. A stable rim remaining cartilage was assured, however microfracture was not indicated. Gentle abrasion arthroplasty was performed and good bleeding was obtained. Of concern the bone was friable and did have some appearance of necrosis and previous insufficiency fracture. The meniscus had subtle fraying at the medial aspect and some undersurface splitting posteriorly, consistent with the MRI. It did not appear to be the main source of pathology. Gentle debridement of the medial inner margin was performed. The posterior wound was lightly debrided but was not removed due to its role in maintaining stability and some function for the knee. The lateral compartment was entirely normal. The tibia cartilage was in fairly good condition with minimal grade 1 chondromalacia. The patellofemoral joint did show grade 2 chondromalacia. The anterior cruciate was intact. The arthroscopic instruments were removed. The tourniquet released and wounds closed with subcutaneous 4-0 Monocryl absorbable suture. Steri strips and a sterile dressing were applied. A light elastic wrap was placed. The patient was extubated and brought to the recovery room in stable condition. Estimated Blood Loss 5 Drains No Complications No immediate complications Condition Stable Disposition PACU AM Billing Surgery - Charge Forward: Surgery Billing
[2024-12-24] MEDS: LACTATED RINGERS 1,000 ML 30 ML IV CONT (13:58)
== END 2024-12-24 15:45 | disposition home or self-care (01) ==
PROVIDERS: PCP Family Medicine; Visit Provider Orthopaedic Surgery
PROC: (CPT 29870; principal; 2024-12-24 13:30)
DX: M84.451A Pathological fracture, right femur, initial encounter for fracture (principal); S83.241A Other tear of medial meniscus, current injury, right knee, initial encounter; X50.0XXA Overexertion from strenuous movement or load, initial encounter; Z87.891 Personal history of nicotine dependence
CPT/HCPCS: 29881; 29879; J0690; J3010; J7120